=== PATIENT | female | born 1985 | race Caucasian/White ===

== ENCOUNTER 2016-11-15 01:18 | Inpatient (IN) | payer BC, OTHER ==
--- NOTE | 2016-11-15 01:25 | HP ---
COWS - Scale Resting Pulse: 0= [place] 80 or Below Sweatin=Flushed/Facial Moisture Restless Observation: 3= Extraneous Movement Pupil Size: 1= Pupils >than Normal Bone or Joint Aches: 2= Severe Diffuse Aches Runny Nose/ Eye Tearin= Runny Nose/Eyes GI Upset > 30mins: 1= Stomach Cramp Tremor Observation: 2= Slight Tremor Visible Yawning Observation: 1= 1-2x During Session Anxiety or Irritability: 1=Feels Anxious/Irritable Goose Flesh Skin: 0=Smooth Skin COWS Score: 15 Admission ROS S - HPI Chief Complaint: WITHDRAWAL SYMPTOMS Allergies/Adverse Reactions: Allergies Allergy/AdvReac Type Severity Reaction Status Date / Time No Known Allergies Allergy Verified 06/25/15 12:10 History of Present Illness: 31 Y.O. WOMAN WITH AN EXTENSIVE HISTORY OF DRUG DEPENDENCE IS SEEKING DETOX. SHE WAS PREVIOUSLY HERE IN 08/2014 BUT LEFT AMA. SHE REPORTS SHE DOES NOT HAVE A SIGNIFICANT PERIOD OF SOBRIETY. Exam Limitations: No Limitations - Ebola screening Have you traveled outside of the country in the last 21 days: No - Review of Systems Constitutional: Chills EENT: reports: Tearing Respiratory: reports: No Symptoms reported Cardiac: reports: No Symptoms Reported GI: reports: No Symptoms Reported : reports: Other (HESISTANCY) Musculoskeletal: reports: No Symptoms Reported Integumentary: reports: Sweating Endocrine: reports: No Symptoms Reported Hematology: reports: No Symptoms Reported Psychiatric: reports: Orientated x3, Anxious, Depressed Other Systems: Reviewed and Negative Patient History - Patient Medical History Hx Anemia: No Hx Asthma: No Hx Chronic Obstructive Pulmonary Disease (COPD): No Hx Cancer: No Hx Cardiac Disorders: No Hx Congestive Heart Failure: No Hx Hypertension: No Hx Hypercholesterolemia: No Hx Pacemaker: No HX Cerebrovascular Accident: No Hx Seizures: No Hx Dementia: No Hx Diabetes: No Hx Gastrointestinal Disorders: No Hx Liver Disease: No Hx Genitourinary Disorders: No Hx Sexually Transmitted Disorders: No Hx Renal Disease (ESRD): No Hx Thyroid Disease: No Hx Human Immunodeficiency Virus (HIV): No Hx Hepatitis C: No Hx Depression: Yes Hx Suicide Attempt: No Hx Bipolar Disorder: No Hx Schizophrenia: No - Patient Surgical History Past Surgical History: No Hx Neurologic Surgery: No Hx Cataract Extraction: No Hx Cardiac Surgery: No Hx Lung Surgery: No Hx Breast Surgery: No Hx Breast Biopsy: No Hx Abdominal Surgery: No Hx Appendectomy: No Hx Cholecystectomy: No Hx Genitourinary Surgery: No Hx Section: No Hx Orthopedic Surgery: No Anesthesia Reaction: No - PPD History Previous Implant?: Yes Documented Results: Negative w/proof Implanted On Prior [facility] Admission?: Yes Date: 06/27/15 PPD to be Administered?: Yes - Reproductive History Patient is a Female of Child Bearing Age (11 -55 yrs old): Yes Last Menstrual Period: 10/14/16 Patient : No - Smoking Cessation Smoking history: Current every day smoker Have you smoked in the past 12 months: Yes Aproximately how many cigarettes per day: 20 Hx Chewing Tobacco Use: No Initiated information on smoking cessation: Yes 'Breaking Loose' booklet given: 11/15/16 - Substance & Tx. History Hx Alcohol Use: No Hx Substance Use: Yes Substance Use Type: Heroin, Marijuana Hx Substance Use Treatment: Yes (DETOX AND REHAB ) - Substances Abused Heroin Route: Injection Frequency: Daily Amount used: 1 BUNDLE Age of first use: 26 Date of Last Use: 11/14/16 Marijuana/Hashish Route: Smoking Frequency: Daily Amount used: 1-2 BLUNTS Age of first use: 17 Date of Last Use: 11/14/16 Family Disease History - Family Disease History Family Disease History: Diabetes: Grandparent, Father (HEROIN DEPENDENCE ), Heart Disease: Grandparent, Other: Father Admission Physical Exam BHS - Vital Signs Vital Signs: Last Vital Signs Temp Pulse Resp BP Pulse Ox 97.0 F L 72 18 116/71 11/15/16 01:36 11/15/16 01:36 11/15/16 01:36 11/15/16 01:36 - Physical General Appearance: Yes: Disheveled, Tremorous, Sweating, Anxious HEENTM: Yes: Hearing grossly Normal, Normal ENT Inspection, Normocephalic, Normal Voice Respiratory: Yes: Chest Non-Tender, Lungs Clear, Normal Breath Sounds, No Respiratory Distress, No Accessory Muscle Use Neck: Yes: No masses,lesions,Nodules, Trachea in good position Breast: Yes: Breast Exam Deferred Cardiology: Yes: Regular Rhythm, Regular Rate, S1, S2 Abdominal: Yes: Normal Bowel Sounds, Non Tender, Flat, Soft Genitourinary: Yes: Hesitency Back: Yes: Normal Inspection Musculoskeletal: Yes: full range of Motion, Gait Steady Extremities: Yes: Normal Range of Motion, Non-Tender, Tremors Neurological: Yes: Fully Oriented, Alert, Motor Strength 5/5, Normal Mood/Affect , Normal Response Integumentary: Yes: Dry, Warm, Track Aranda Lymphatic: Yes: Within Normal Limits - Diagnostic (1) Opioid dependence with withdrawal Current Visit: Yes Status: Chronic (2) Cannabis dependence, uncomplicated Current Visit: Yes Status: Chronic (3) Nicotine dependence Current Visit: Yes Status: Chronic Cleared for Admission [facility] - Detox or Rehab [facility] Level of Care: Medically Managed Detox Regimen/Protocol: Methadone [facility] Breath Alcohol Content Breath Alcohol Content: 0 Vital Signs - Vital Signs Vital Signs Refused: No Temperature: 97.0 F Temperature Source: Oral Pulse Rate: 72 Respiratory Rate: 18 Blood Pressure: 116/71 BP Location: Left Arm Blood Pressure Position: Sitting - Height Height: 5 ft 5 in - Weight Weight: 160 lb Weight Measurement Method: Standing Scale Body Mass Index (BMI): 26.6 Urine Pregancy Test - Test Device Lot Number: [id number] Expiration Date: 05/29/18 - Control Horizontal Line in Upper Control Window?: Yes - Result Urine Test Results: Negative- NO Line Present Urine Drug Screen - Test Device Lot Number: [id number] Expiration Date: 06/30/18 - Control Is Test Valid: Yes - Results Drug Screen Negative: No Urine Drug Screen Results: THC-Marijuana, OPI-Opiates
[2016-11-15 01:36] VITALS: BMI 26.6
[2016-11-15] MEDS ORDERED: IBUPROFEN 400 MG TABLET (FP) PO PRN (01:43)
[2016-11-15] MEDS ORDERED: P-EPHED 60MG/TRIPROLIDI 2.5MG TABLET PO PRN (01:43)
[2016-11-15] MEDS ORDERED: hydrOXYzine PAMOATE 50 MG CAPSULE (FP) PO PRN (01:43)
[2016-11-15] MEDS ORDERED: METHADONE HCL 10 MG TABLET (FOR DETOX USE ONLY) PO ONE ×3 (01:43→23:00)
[2016-11-15] MEDS ORDERED: MAG HYDROX/AL HYDROX/SIMETH 30 ML UNIT-DOSE CUP PO PRN (01:43)
[2016-11-15] MEDS ORDERED: ACETAMINOPHEN 325 MG TABLET (FP) PO PRN (01:43)
[2016-11-15] MEDS ORDERED: guaiFENesin/D-METHORPHAN HB 10 ML UNIT-DOSE CUPS PO PRN (01:43)
[2016-11-15] MEDS ORDERED: MAGNESIUM CITRATE 300 ML BOTTLE PO PRN (01:43)
[2016-11-15] MEDS ORDERED: MAGNESIUM HYDROX 2400MG/30ML ORAL SUSPENSION 30 ML CUP PO PRN (01:43)
[2016-11-15] MEDS ORDERED: LOPERAMIDE HCL 2 MG CAPSULE PO PRN (01:43)
[2016-11-15] MEDS ORDERED: diphenhydrAMINE HCL 50 MG CAPSULE PO PRN (01:43)
[2016-11-15] MEDS ORDERED: MENTHOL/PHENOL 1 EACH UD MM PRN (01:43)
[2016-11-15] MEDS: diazePAM 5 MG TABLET PO PRN ×3 (03:05→22:09)
[2016-11-15] MEDS: NICOTINE POLACRILEX 2 MG GUM BUC PRN (03:55)
[2016-11-15] MEDS: PRENATAL VITAMINS W/ FOLIC ACID TABLET (FP) PO SCH (10:19)
--- NOTE | 2016-11-15 10:54 | PN ---
BHS Progress Note (SOAP) Subjective: ALERT,IRRITABLE,ANXIOUS,INTERRUPTED SLEEP,TREMOR,PAIN IN THE BODY AND BACK Objective: 11/15/16 10:52 Vital Signs Temperature 98.4 F 11/15/16 09:52 Pulse Rate 85 11/15/16 09:52 Respiratory Rate 16 11/15/16 09:52 Blood Pressure 116/51 11/15/16 09:52 O2 Sat by Pulse Oximetry (%) EKG NSR LABS PENDING Assessment: 11/15/16 10:53 WITHDRAWAL SYMPTOM Plan: CONTINUE DETOX
[2016-11-15 12:35] LABS: HIV 1 AGp24 NEGATIVE
[2016-11-15 12:36] LABS: HIV 1 & 2 AB NEGATIVE
[2016-11-15] MEDS: THIAMINE HCL 100 MG TABLET (FP) PO SCH (22:08)
[2016-11-16] MEDS: diazePAM 5 MG TABLET PO PRN ×3 (05:53→22:10)
--- NOTE | 2016-11-16 09:36 | CONSULT ---
[facility] Psychiatric Consult - Data Date of interview: 11/16/16 Admission source: [facility] Identifying data: This is 31 yeras old female with no psyvjiatric [id number] history intoxicated with Opioids, Cannabis and Nicotine Substance Abuse History: - Smoking Cessation. Smoking history: Current every day smoker. Have you smoked in the past 12 months: Yes. Aproximately how many cigarettes per day: 20. Hx Chewing Tobacco Use: No. Initiated information on smoking cessation: Yes. 'Breaking Loose' booklet given: 11/15/16. - Substance & Tx. History. Hx Alcohol Use: No. Hx Substance Use: Yes. Substance Use Type : Heroin, Marijuana. Hx Substance Use Treatment: Yes (DETOX AND REHAB ). - Substances Abused. Heroin. Route: Injection. Frequency: Daily. Amount used: 1 BUNDLE. Age of first use: 26. Date of Last Use: 11/14/16. Marijuana/Hashish. Route: Smoking. Frequency: Daily. Amount used: 1-2 BLUNTS. Age of first use: 17. Date of Last Use: 11/14/16 Medical History: Cellulitis history Psychiatric History: Patient reports history of anxiety, reports insomnia, reports tasking priorm to admission: Remeron 15mg po qhs Physical/Sexual Abuse/Trauma History: Denies Additional Comment: Remeron 15mg po qhs Mental Status Exam - Mental Status Exam Alert and Oriented to: Person Cognitive Function: Fair Patient Appearance: Unkempt Mood: Sad Affect: Mood Congruent Patient Behavior: Cooperative Speech Pattern: Appropriate Voice Loudness: Mildly Soft/Quiet Thought Process: Goal Oriented Thought Disorder: Being Controlled Hallucinations: Denies Suicidal Ideation: Denies Homicidal Ideation: Denies Insight/Judgement: Fair Sleep: Difficulty falling asleep Appetite: Fair Muscle strength/Tone: Normal Gait/Station: Shuffling Additional Comments: Remeron 15mg po qhs Psychiatric Findings - Problem List ([place] 1, 2,3) (1) Cannabis dependence, uncomplicated Current Visit: Yes Status: Chronic (2) Nicotine dependence Current Visit: Yes Status: Chronic (3) Opioid dependence with withdrawal Current Visit: Yes Status: Chronic (4) Drug-induced mood disorder Current Visit: No Status: Acute (5) Cannabis abuse, uncomplicated Current Visit: No Status: Chronic (6) Nicotine dependence, uncomplicated Current Visit: No Status: Chronic Qualifiers: Nicotine product type: cigarettes Qualified Code(s): F17.210 - Nicotine dependence, cigarettes, uncomplicated - Initial Treatment Plan Initial Treatment Plan: Remeron 15mg po qhs
--- NOTE | 2016-11-16 09:56 | PN ---
BHS COWS - Scale Resting Pulse: 0= [place] 80 or Below Sweatin= Chills/Flushing Restless Observation: 1= Difficult to Sit Still Pupil Size: 1= Pupils >than Normal Bone or Joint Aches: 0= None Runny Nose/ Eye Tearin= Nasal Congestion GI Upset > 30mins: 2= Nausea/Diarrhea Tremor Observation of Outstretched Hands: 1= Tremor [place], Not Seen Yawning Observation: 1= 1-2x During Session Anxiety or Irritability: 2=Irritable/Anxious Goose Flesh Skin: 0=Smooth Skin COWS Score: 10 BHS Progress Note (SOAP) Subjective: interrupted sleep, sweats, shakes , nausea Objective: 11/16/16 09:54 Vital Signs Temperature 98.6 F 11/16/16 06:00 Pulse Rate 79 11/16/16 06:00 Respiratory Rate 18 11/16/16 06:00 Blood Pressure 130/55 11/16/16 06:00 O2 Sat by Pulse Oximetry (%) Laboratory Tests 11/15/16 07:16 HIV 1&2 Antibody Screen Negative HIV P24 Antigen Negative Laboratory Tests 11/15/16 07:16 HIV 1&2 Antibody Screen Negative HIV P24 Antigen Negative pending labs pt aox 3 lying in bed Assessment: 11/16/16 09:55 withdrawal sx;s Plan: cont. detox increase fluids [place] prn
[2016-11-16] MEDS ORDERED: METHADONE HCL 10 MG TABLET (FOR DETOX USE ONLY) PO ONE (10:00)
[2016-11-16 10:02] LABS: MCH 27.9 pg (25.7-33.7); MCHC 33.4 g/dl (32.0-36.0); MEAN CELL VOLUME 83.7 fl (80-96); MEAN PLT VOLUME 9.7 fl (7.5-11.1); PLATELET COUNT 246 K/MM3 (134-434); RDW 14.8 % (11.6-15.6); WHITE BLOOD COUNT 9.3 K/mm3 (4.0-10.0)
[2016-11-16 10:06] LABS: URINE APPEARANCE CLEAR; URINE BILIRUBIN NEGATIVE (NEGATIVE); URINE BLOOD NEGATIVE (NEGATIVE); URINE COLOR LTYELLOW; URINE GLUCOSE (UA) NEGATIVE (NEGATIVE); URINE KETONE NEGATIVE (NEGATIVE); URINE LEUK ESTERASE NEGATIVE (NEGATIVE); URINE NITRITE NEGATIVE (NEGATIVE); URINE PROTEIN NEGATIVE (NEGATIVE); URINE UROBILINOGEN NEGATIVE E.U./dl (0.2-1.0)
[2016-11-16] MEDS: PRENATAL VITAMINS W/ FOLIC ACID TABLET (FP) PO SCH (10:16)
[2016-11-16] MEDS: MIRTAZAPINE 15 MG TABLET (FP) PO SCH (10:16)
[2016-11-16 10:44] LABS: ALBUMIN 3.7 g/dl (3.4-5.0); ALK PHOS 61 U/L (45-117); ANION GAP 10 (8-16); BILIRUBIN,TOTAL 0.4 mg/dL (0.2-1.0); CALCIUM 8.7 mg/dL (8.5-10.1); CO2 27 mmol/L (21-32); CREATININE 0.6 mg/dL (0.55-1.02); GLUCOSE,RANDOM 85 mg/dL (74-106); SGOT/AST 16 U/L (15-37); SGPT/ALT 17 U/L (12-78); TOT PROT 6.5 g/dl (6.4-8.2)
[2016-11-16] MEDS: THIAMINE HCL 100 MG TABLET (FP) PO SCH (22:10)
[2016-11-17 09:46] VITALS: BP 123/67; PULSE 77; TEMP 98.8
[2016-11-17] MEDS ORDERED: METHADONE HCL 5 MG TABLET (FOR DETOX USE ONLY) PO ONE (10:00)
[2016-11-17] MEDS: PRENATAL VITAMINS W/ FOLIC ACID TABLET (FP) PO SCH (10:15)
[2016-11-17] MEDS: MIRTAZAPINE 15 MG TABLET (FP) PO SCH (10:16)
[2016-11-17] MEDS: diazePAM 5 MG TABLET PO PRN (10:18)
[2016-11-17] MEDS: NICOTINE POLACRILEX 2 MG GUM BUC PRN (10:18)
--- NOTE | 2016-11-17 10:32 | PN ---
BHS Progress Note (SOAP) Subjective: teary eyes sweats body aches agitation anxiety chills Objective: 11/17/16 10:31 Vital Signs Temperature 98.8 F 11/17/16 09:46 Pulse Rate 77 11/17/16 09:46 Respiratory Rate 18 11/17/16 09:46 Blood Pressure 123/67 11/17/16 09:46 O2 Sat by Pulse Oximetry (%) Laboratory Tests 11/15/16 11/15/16 11/16/16 07:16 07:16 06:00 WBC 9.3 RBC 4.49 Hgb 12.6 Hct 37.6 MCV 83.7 MCHC 33.4 RDW 14.8 Plt Count 246 MPV 9.7 Sodium Potassium Chloride Carbon Dioxide Anion Gap BUN Creatinine Creat Clearance w eGFR Random Glucose Calcium Total Bilirubin AST ALT Alkaline Phosphatase Total Protein Albumin Urine Color Urine Appearance Urine pH Ur Specific Fabius Urine Protein Urine Glucose (UA) Urine Ketones Urine Blood Urine Nitrite Urine Bilirubin Urine Urobilinogen Ur Leukocyte Esterase RPR Titer Hepatitis C Antibody 0.1 HIV 1&2 Antibody Screen Negative HIV P24 Antigen Negative 11/16/16 11/16/16 11/16/16 06:00 06:00 07:00 WBC RBC Hgb Hct MCV MCHC RDW Plt Count MPV Sodium 139 Potassium 4.3 Chloride 102 Carbon Dioxide 27 Anion Gap 10 BUN 16 D Creatinine 0.6 D Creat Clearance w eGFR > 60 Random Glucose 85 Calcium 8.7 Total Bilirubin 0.4 D AST 16 ALT 17 D Alkaline Phosphatase 61 D Total Protein 6.5 Albumin 3.7 Urine Color Ltyellow Urine Appearance Clear Urine pH 8.0 Ur Specific Fabius 1.016 Urine Protein Negative Urine Glucose (UA) Negative Urine Ketones Negative Urine Blood Negative Urine Nitrite Negative Urine Bilirubin Negative Urine Urobilinogen Negative Ur Leukocyte Esterase Negative RPR Titer Nonreactive Hepatitis C Antibody HIV 1&2 Antibody Screen HIV P24 Antigen awake/alert ambulating no acute distress Assessment: 11/17/16 10:31 withdrawal sx Plan: continue detox increase fluids acitifed prn
--- NOTE | 2016-11-17 12:44 | DS ---
[facility] Detox Discharge Summary Admission Date: 11/15/16 - History Present History: Cannabis Dependence, Opioid Dependence - Physical Exam Results Vital Signs: Vital Signs Temperature 98.8 F 11/17/16 09:46 Pulse Rate 77 11/17/16 09:46 Respiratory Rate 18 11/17/16 09:46 Blood Pressure 123/67 11/17/16 09:46 O2 Sat by Pulse Oximetry (%) - Treatment Hospital Course: Detox Protocol Followed - Medication Discharge Medications: Ambulatory Orders Mirtazapine [Remeron -] 15 mg PO HS 06/25/15 Nabumetone [Relafen -] 500 mg PO BID 06/25/15 Mirtazapine [Remeron -] 15 mg PO HS #30 tablet 06/27/15 Cephalexin Monohydrate [Keflex -] 500 mg PO Q6HPO #20 capsule 06/28/15 Mirtazapine [Remeron -] 15 mg PO HS #30 tablet 11/16/16 - Diagnosis (1) Cannabis dependence, uncomplicated Current Visit: Yes Status: Chronic (2) Nicotine dependence Current Visit: Yes Status: Chronic Qualifiers: Nicotine product type: cigarettes Substance use status: uncomplicated Qualified Code(s): F17.210 - Nicotine dependence, cigarettes, uncomplicated (3) Opioid dependence with withdrawal Current Visit: Yes Status: Chronic (4) Anxiety disorder Current Visit: No Status: Acute (5) Cannabis abuse, uncomplicated Current Visit: Yes Status: Chronic - AMA Did Patient Leave Against Medical Advice: Yes (wants to leave detox. )
--- NOTE | 2016-11-17 16:58 | EKG ---
Test Reason : Blood Pressure : / mmHG Vent. Rate : 060 BPM Atrial Rate : 060 BPM P-R Int : 134 ms QRS Dur : 086 ms QT Int : 418 ms P-R-T Axes : 047 061 028 degrees QTc Int : 418 ms NORMAL SINUS RHYTHM NORMAL ECG NO PREVIOUS ECGS AVAILABLE Confirmed by CHAPO PEREZ MD ([id number]) on 11/17/2016 4:57:55 PM Referred By: Confirmed By:CHAPO PEREZ MD
[2016-11-18] MEDS ORDERED: METHADONE HCL 5 MG TABLET (FOR DETOX USE ONLY) PO ONE (10:00)
[2016-11-19] MEDS ORDERED: METHADONE HCL 10 MG TABLET (FOR DETOX USE ONLY) PO ONE (10:00)
[2016-11-20] MEDS ORDERED: METHADONE HCL 5 MG TABLET (FOR DETOX USE ONLY) PO ONE (06:00)
== END 2016-11-17 13:00 | disposition left against medical advice (07) | DRG 770 ==
LOC: YASAS 01:18 → Y6N 01:21
PROVIDERS: ADMIT Internal Medicine Addiction Medicine; ATTEND Internal Medicine
PROC: HZ2ZZZZ Detoxification Services for Substance Abuse Treatment (ICD-10-PCS; principal; 2016-11-17)
DX: F11.23 Opioid dependence with withdrawal (principal); F12.20 Cannabis dependence, uncomplicated; F17.210 Nicotine dependence, cigarettes, uncomplicated; F41.9 Anxiety disorder, unspecified; F19.24 Other psychoactive substance dependence with psychoactive substance-induced mood disorder
CPT/HCPCS: 36415; 80053; 81003; 85027; 86593; 87389; 93005; 93010

== ENCOUNTER 2017-02-21 18:49 | Inpatient (IN) | payer BC ==
--- NOTE | 2017-02-21 21:01 | PDOC ---
History of Present Illness - General Chief Complaint: Redness To Affected Area Stated Complaint: INFECTION Time Seen by Provider: 02/21/17 19:26 History Source: Patient Exam Limitations: No Limitations - History of Present Illness Initial Comments: 02/21/17 20:56 Patient is a 31-year-old female IVDA heroine and cocaine, chronic back pain on pain management here with complaints of bilateral hands and feet swelling which started this morning. Patient states that on February 13 she was admitted to the hospital for IV antibiotics for infection to the hands was discharged on February 17. States that when she got home she started shooting up again in the hand and is here for bilateral hand swelling and pain. She was discharged with Bactrim, but did not take the meds immediately seem to have missed a few day, however after taking 1 day of Bactrim, the next day started to have swelling, burning to the hand and feet with blister to the planter aspect of feet and in the oral mucoa. States she thinks she is allergic because she got similar swelling to her extremities with amoxicillin. States today went on a binge and shot up heroine and cocaine. 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 PMD:none PMHX: as above ALL: amoxicillin GENERAL/CONSTITUTIONAL: [No fever or chills. No weakness. No weight change.] HEAD, EYES, EARS, NOSE AND THROAT: [No change in vision. No ear pain or discharge. No sore throat.] CARDIOVASCULAR: [No chest pain or shortness of breath.] RESPIRATORY: [No cough, wheezing, or hemoptysis.] GASTROINTESTINAL: [No nausea, vomiting, diarrhea or constipation. No rectal bleeding.] GENITOURINARY: [No dysuria, frequency, or change in urination.] MUSCULOSKELETAL: [No joint or muscle swelling or pain. No neck or back pain.] SKIN AND BREASTS: [No rash or easy bruising.] NEUROLOGIC: [No headache, vertigo, loss of consciousness, or loss of sensation.] PSYCHIATRIC: [No depression or anxiety.] ENDOCRINE: [No increased thirst. No abnormal weight change.] HEMATOLOGIC/LYMPHATIC: [No anemia, easy bleeding, or history of blood clots.] ALLERGIC/IMMUNOLOGIC: [No hives or skin allergy. No latex allergy.] GENERAL: [The patient is awake, alert, and fully oriented, in no acute distress. ] HEAD: [Normal with no signs of trauma.] EYES: [Pupils equal, round and reactive to light, extraocular movements intact, sclera anicteric, conjunctiva clear.] ENT: [Ears normal, nares patent, oropharynx clear without exudates. Moist mucous membranes.] NECK: [Normal range of motion, supple without lymphadenopathy, JVD, or masses.] LUNGS: [Breath sounds equal, clear to auscultation bilaterally. No wheezes, and no crackles.] HEART: [Regular rate and rhythm, normal S1 and S2 without murmur, rub.] ABDOMEN: [Soft, nontender, normoactive bowel sounds. No guarding, no rebound. No masses.] EXTREMITIES: Limited range of motion bilateral hands especially right, moderate amount of swelling hands right greater than left, tenderness to palpation, erythema, No clubbing or cyanosis. No cords] NEUROLOGICAL: [Cranial nerves II through XII grossly intact. Normal speech, normal gait.] PSYCH: [Normal mood, normal affect.] SKIN: (+) blisters to the planter aspect feet, (+) moderate swelling to b/l hands R>L. 1 blister in the right lower lip Past History - Past Medical History Allergies/Adverse Reactions: Allergies Allergy/AdvReac Type Severity Reaction Status Date / Time amoxicillin Allergy Verified 02/21/17 19:32 sulfamethoxazole Allergy Verified 02/21/17 19:32 [From Bactrim] trimethoprim [From Bactrim] Allergy Verified 02/21/17 19:32 Home Medications: Ambulatory Orders Gabapentin [Gralise] 1 tab PO DAILY 02/21/17 Oxycodone HCl/Acetaminophen [Xartemis Xr 7.5-325 mg Tablet] 1 each PO DAILY Sulfamethoxazole/Trimethoprim [Bactrim Ds -] 1 tab PO DAILY 02/21/17 Anemia: No Asthma: No Cancer: No Cardiac Disorders: No CVA: No COPD: No CHF: No Dementia: No Diabetes: No GI Disorders: No Disorders: No HTN: No Hypercholesterolemia: No Kidney Stones: No Liver Disease: No Suicide Attempt (Hx): No Seizures: No Thyroid Disease: No Other medical history: iv drug abuse - Surgical History Abdominal Surgery: No Appendectomy: No Cardiac Surgery: No Cholecystectomy: No Lung Surgery: No Neurologic Surgery: No Orthopedic Surgery: No - Reproductive History PID: No - Psycho/Social/Smoking Cessation Hx Anxiety: Yes Suicidal Ideation: No Smoking History: Current some day smoker Have you smoked in the past 12 months: Yes Number of Cigarettes Smoked Daily: 20 Information on smoking cessation initiated: Yes 'Breaking Loose' booklet given: 02/21/17 Hx Alcohol Use: No Drug/Substance Use Hx: Yes (herion and coccaine) Substance Use Type: Cocaine, Heroin, Marijuana Hx Substance Use Treatment: Yes (DETOX AND REHAB ) *Physical Exam - Vital Signs Last Vital Signs Temp Pulse Resp BP Pulse Ox 98.3 F 103 H 20 134/97 97 02/21/17 18:51 02/21/17 18:51 02/21/17 18:51 02/21/17 18:51 02/21/17 19:20 ED Treatment Course - LABORATORY CBC & Chemistry Diagram: 02/21/17 22:27 02/21/17 22:00 Medical Decision Making - Medical Decision Making 02/21/17 21:01 Patient is a 31-year-old female with history of IVDA here with bilateral hand swelling after shooting up consistent. Hand cellulitis rule out abscess xray hand labs, Clindamycin 900mg IV B/L hand and feet burning with blisters r/o allergic reaction/rod dharmesh benadryl, pepcid, solumedrol. xray no FB, (+) soft tissue swelling d/w Dr. Cunningham will admit *DC/Admit/Observation/Transfer Diagnosis at time of Disposition: Cellulitis of hand, Rod-Dharmesh syndrome, Drug abuse and dependence Allergic reaction Qualifiers: Encounter type: initial encounter Qualified Code(s): T78.40XA - Allergy, unspecified, initial encounter - Discharge Dispostion Admit: Yes
[2017-02-21] MEDS ORDERED: CLINDAMYCIN 900 MG PREMIX IVPB 50 ML IVPB ONE ×2 (21:04→23:13)
[2017-02-21] MEDS ORDERED: KETOROLAC TROMETHAMINE 30 MG/1 ML VIAL IVPUSH ONE (21:13)
[2017-02-21] MEDS ORDERED: FAMOTIDINE 20 MG/50 ML IVPB 50 ML IVPB ONE ×2 (22:27→23:14)
[2017-02-21] MEDS ORDERED: methylPREDNISolone NA SUCC 125 MG/2 ML VIAL IVPB ONE (22:28)
[2017-02-21 22:42] LABS: BASOPHIL 0.9 % (0-2.0); EOSINOPHIL 1.3 % (0-4.5); MCH 26.8 pg (25.7-33.7); MCHC 32.3 g/dl (32.0-36.0); MEAN PLT VOLUME 9.3 fl (7.5-11.1); NEUTROPHILS 72.4 % (42.8-82.8); PLATELET COUNT 259 K/MM3 (134-434); RDW 14.5 % (11.6-15.6); WHITE BLOOD COUNT 14.3 K/mm3 (4.0-10.0)
[2017-02-21 23:12] LABS: ALBUMIN 4.4 g/dl (3.4-5.0); ANION GAP 10 (8-16); BILIRUBIN,TOTAL 0.9 mg/dL (0.2-1.0); CALCIUM 8.7 mg/dL (8.5-10.1); CO2 22 mmol/L (21-32); GLUCOSE,RANDOM 88 mg/dL (74-106); SGOT/AST 53 U/L (15-37); SGPT/ALT 44 U/L (12-78); TOT PROT 7.8 g/dl (6.4-8.2)
[2017-02-21 23:14] LABS: ALK PHOS 84 U/L (45-117)
[2017-02-21] MEDS ORDERED: KETOROLAC TROMETHAMINE 30 MG/1 ML VIAL ONE ×2 (23:14→23:17)
[2017-02-21] MEDS ORDERED: methylPREDNISolone NA SUCC 125 MG/2 ML VIAL ONE (23:14)
--- NOTE | 2017-02-22 00:38 | PN ---
<Haja Cunningham - Last Filed: 02/22/17 00:38> Teaching Attending Note Name of Resident: Valentin Norton ATTENDING PHYSICIAN STATEMENT I saw and evaluated the patient. I reviewed the resident's note and discussed the case with the resident. I agree with the resident's findings and plan as documented. SUBJECTIVE: OBJECTIVE: ASSESSMENT AND PLAN: <FengTeddy - Last Filed: 02/22/17 03:21> Teaching Attending Note ATTENDING PHYSICIAN STATEMENT I saw and evaluated the patient. I reviewed the resident's note and discussed the case with the resident. I agree with the resident's findings and plan as documented. SUBJECTIVE: Patient is a 31-year-old female IVDA heroine and cocaine, chronic back pain on pain management here with complaints of bilateral hands and feet swelling which started this morning. Patient states that on February 13 she was admitted to the hospital for IV antibiotics for infection to the hands was discharged on February 17. States that when she got home she started shooting up again in the hand and is here for bilateral hand swelling and pain. She was discharged with Bactrim, but did not take the meds immediately seem to have missed a few day, however after taking 1 day of Bactrim, the next day started to have swelling, burning to the hand and feet with blister to the plantar aspect of feet and in the oral mucosa. States today shot up heroin and cocaine. OBJECTIVE: Last Vital Signs 3 Temp Pulse Resp BP Pulse Ox 98.3 F 103 H 20 134/97 97 02/21/17 18:51 02/21/17 18:51 02/21/17 18:51 02/21/17 18:51 02/21/17 19:20 Physical Exam: Patient refused physical exam. Labs: CBCD 3 WBC 14.3 K/mm3 (4.0-10.0) H D 02/21/17 22:27 RBC 4.49 M/mm3 (3.60-5.2) 02/21/17 22:27 Hgb 12.0 GM/dL (10.7-15.3) 02/21/17 22:27 Hct 37.3 % (32.4-45.2) 02/21/17 22:27 MCV 83.0 fl (80-96) 02/21/17 22:27 MCHC 32.3 g/dl (32.0-36.0) 02/21/17 22:27 RDW 14.5 % (11.6-15.6) 02/21/17 22:27 Plt Count 259 K/MM3 (134-434) 02/21/17 22:27 MPV 9.3 fl (7.5-11.1) 02/21/17 22:27 CMP 3 Sodium 139 mmol/L (136-145) 02/21/17 22:00 Potassium 4.0 mmol/L (3.5-5.1) 02/21/17 22:00 Chloride 107 mmol/L (98-107) 02/21/17 22:00 Carbon Dioxide 22 mmol/L (21-32) 02/21/17 22:00 Anion Gap 10 (8-16) 02/21/17 22:00 BUN 11 mg/dL (7-18) D 02/21/17 22:00 Creatinine 1.0 mg/dL (0.55-1.02) D 02/21/17 22:00 Creat Clearance w eGFR > 60 (>60) 02/21/17 22:00 Calcium 8.7 mg/dL (8.5-10.1) 02/21/17 22:00 Total Bilirubin 0.9 mg/dL (0.2-1.0) D 02/21/17 22:00 AST 53 U/L (15-37) H D 02/21/17 22:00 ALT 44 U/L (12-78) D 02/21/17 22:00 Alkaline Phosphatase 84 U/L (45-117) D 02/21/17 22:00 Total Protein 7.8 g/dl (6.4-8.2) 02/21/17 22:00 Albumin 4.4 g/dl (3.4-5.0) 02/21/17 22:00 ASSESSMENT AND PLAN: Patient is a 31-year-old female heroine and cocaine abuse, chronic back pain who presents with bilateral hand and foot edema, found to have cellulitis. 1. Cellulitis of bilateral hands - CT bilateral hands to r/o air - Vancomycin - Aztreonam - ID consult - ? Abcess 2. History of heroin and cocaine abuse. - Detox consult DVT PPX - low risk - SCDs Place in med surg. Documentation prepared by Teddy Toney, acting as biomedical technician for Dr. Haja Cunningham MD.
--- NOTE | 2017-02-22 02:25 | HP ---
CHIEF COMPLAINT: PCP: No pcp HISTORY OF PRESENT ILLNESS: 31 y/o F w/hx of IVDA of heroine and cocaine, chronic back pain presents to ER w /B/L hand and feet swelling that began this AM. Pt was recently on IV abx and discharged February 17 with bactrim. Pt only began taking bactrim yesterday and after taking 1 dose the following day began having b/l hand and feet swelling. Pt states she also has recently used heroine and cocaine via IV and only uses her hands as sites for IVDU. She c/o b/l feet pain and cramping in her abdomen as she is currently menstruating. She denies fevers, chills. Further history was difficult to obtain as pt is currently altered due to drug use. Pt continues to fall asleep during questioning. According to ER notes pt sells her prescribed pain meds. ER course was notable for: (1) benadryl IV, solu-medrol, pepcid, toradol, clindamycin, BCx (2) (3) PAST MEDICAL HISTORY: IVDA of heroine and cocaine, chronic back pain PAST SURGICAL HISTORY: unable to obtain Social History: Smoking: pt did not answer Alcohol: pt did not answer Drugs: heroine and cocaine (IV) Family History: Allergies amoxicillin Allergy (Verified 02/21/17 19:32) sulfamethoxazole [From Bactrim] Allergy (Verified 02/21/17 19:32) New allergic reaction to prescribed Abx trimethoprim [From Bactrim] Allergy (Verified 02/21/17 19:32) New allergic reaction to prescribed Abx HOME MEDICATIONS: Home Medications Medication Instructions Recorded Gabapentin [Gralise] 1 tab PO DAILY 02/21/17 Oxycodone HCl/Acetaminophen 1 each PO DAILY 02/21/17 [Xartemis Xr 7.5-325 mg Tablet] Sulfamethoxazole/Trimethoprim 1 tab PO DAILY 02/21/17 [Bactrim Ds -] REVIEW OF SYSTEMS Could not obtain as pt is currently altered due to drug use. Vital Signs Temperature 98.3 F 02/21/17 18:51 Pulse Rate 103 H 02/21/17 18:51 Respiratory Rate 20 02/21/17 18:51 Blood Pressure 134/97 02/21/17 18:51 O2 Sat by Pulse Oximetry (%) 97 02/21/17 19:20 PHYSICAL EXAMINATION GENERAL: Lethargic, altered due to drug use. HEAD: Normal with no signs of trauma. LUNGS: Pt not following commands to take deep breaths. HEART: Regular rate and rhythm, normal S1 and S2 without murmur ABDOMEN: Pt did not allow me to examine. UPPER EXTREMITIES: multiple track dias on both hands. R hand with a yellow abscess approximately 0.5 cm in diameter. B/l Hand swelling. LOWER EXTREMITIES: b/l feet swelling with redness on plantar aspect of feet. warm NEUROLOGICAL: Delayed speech, not answering questions at this time completely.. PSYCHIATRIC: Non completely cooperative at this time SKIN: Lesions as noted in extremities above. CBCD WBC 14.3 K/mm3 (4.0-10.0) H D 02/21/17 22: RBC 4.49 M/mm3 (3.60-5.2) 02/21/17 22:27 Hgb 12.0 GM/dL (10.7-15.3) 02/21/17 22: Hct 37.3 % (32.4-45.2) 02/21/17 22: MCV 83.0 fl (80-96) 02/21/17 22:27 MCHC 32.3 g/dl (32.0-36.0) 02/21/17 22: RDW 14.5 % (11.6-15.6) 02/21/17 22:27 Plt Count 259 K/MM3 (134-434) 02/21/17 22:27 MPV 9.3 fl (7.5-11.1) 02/21/17 22:27 CMP Sodium 139 mmol/L (136-145) 02/21/17 22:00 Potassium 4.0 mmol/L (3.5-5.1) 02/21/17 22:00 Chloride 107 mmol/L (98-107) 02/21/17 22:00 Carbon Dioxide 22 mmol/L (21-32) 02/21/17 22:00 Anion Gap 10 (8-16) 02/21/17 22:00 BUN 11 mg/dL (7-18) D 02/21/17 22:00 Creatinine 1.0 mg/dL (0.55-1.02) D 02/21/17 22:00 Creat Clearance w eGFR > 60 (>60) 02/21/17 22:00 Random Glucose 88 mg/dL (74-106) 02/21/17 22:00 Calcium 8.7 mg/dL (8.5-10.1) 02/21/17 22:00 Total Bilirubin 0.9 mg/dL (0.2-1.0) D 02/21/17 22:00 AST 53 U/L (15-37) H D 02/21/17 22:00 ALT 44 U/L (12-78) D 02/21/17 22:00 Alkaline Phosphatase 84 U/L (45-117) D 02/21/17 22:00 Total Protein 7.8 g/dl (6.4-8.2) 02/21/17 22:00 Albumin 4.4 g/dl (3.4-5.0) 02/21/17 22:00 ASSESSMENT/PLAN: 31 y/o F w/hx of IVDA of heroine and cocaine, chronic back pain presents to ER w /B/L hand and feet swelling that began this AM. -Cellulitis of b/l hands -Will need CT of hands to r/o abscess or air -CT w/ contrast attempted but tech states contrast will not reach -Vanco 1.25 g (weight based) once stat ordered -Aztreonam 1 g once stat ordered (pt with amox allergy, given in place of zosyn) -ID consulted -Suspicion for SJS is low at this time -Leukocytosis -likely secondary to cellulitis -f/u BCx -monitor -Hx of heroin and cocaine abuse -Dr. Samuel Hicks consulted -f/u Utox -DVT ppx -SCDs -FEN -NS @ 75 ml/hr -Electrolytes wnl -NPO as pt is currently altered, can change once mental status improves -Dispo -Admit to m/s 2. History of heroin and cocaine abuse. - Detox consult DVT PPX - low risk - SCDs Visit type - Emergency Visit Emergency Visit: Yes ED Registration Date: 02/22/17 Care time: The patient presented to the Emergency Department on the above date and was hospitalized for further evaluation of their emergent condition. - New Patient This patient is new to me today: Yes Date on this admission: 02/22/17 - Critical Care Critical Care patient: No
[2017-02-22] MEDS ORDERED: VANCOMYCIN 1,250 MG in DEXTROSE 5%-WATER - 250 ML IVPB ONE (03:00)
[2017-02-22] MEDS ORDERED: AZTREONAM 1 GM in DEXTROSE 5%-WATER - 50 ML IVPB ONE (03:22)
[2017-02-22] MEDS ORDERED: SODIUM CHLORIDE 1,000 ML IV SCH (03:30)
[2017-02-22 05:18] VITALS: BMI 24.7
--- NOTE | 2017-02-22 09:47 | CONSULT ---
Consult Detox [facility] Reason for Current Admission/Consult: Heroin withdrawal sx. Referred by:: Valentin Norton Res - History History of Present Illness: 31 y/o woman who was here in october 2016 for detox,but did not complete detox. In october she reported using Heroin 10 bags daily.She presents to ED because of swelling & tenderness of both hands.She was hospitalized from February 13 to for IV antibiotics for cellulitis. Urine drug screen is pending. - History Source History Provided By: Patient, Medical Record - Alcohol/Substance Use Hx Alcohol Use: No Hx Substance Use: Yes Hx Substance Use Treatment: Yes (Detox in October at [facility]) - Current Drug/Alcohol Use Heroin Route: Injection Frequency: Daily Amount used: 10-20 bags Age of first use: 25 Date of Last Use: 02/21/17 Cocaine Route: Injection Frequency: Daily Date of Last Use: 02/21/17 Alprazolam (Xanax) Route: Oral Frequency: Daily Amount used: 4-6mg Age of first use: 20 Date of Last Use: 02/21/17 - Past Medical History ...LMP: 02/22/17 ...: No - Significant Medical Findings: Laboratory Tests 02/21/17 02/21/17 02/21/17 22:00 22:27 22:27 WBC 14.3 H D RBC 4.49 Hgb 12.0 Hct 37.3 MCV 83.0 MCHC 32.3 RDW 14.5 Plt Count 259 MPV 9.3 Neutrophils % 72.4 Lymphocytes % 19.5 Monocytes % 5.9 Eosinophils % 1.3 Basophils % 0.9 Sodium 139 Potassium 4.0 Chloride 107 Carbon Dioxide 22 Anion Gap 10 BUN 11 D Creatinine 1.0 D Creat Clearance w eGFR > 60 Random Glucose 88 Lactic Acid 0.7 Calcium 8.7 Total Bilirubin 0.9 D AST 53 H D ALT 44 D Alkaline Phosphatase 84 D Total Protein 7.8 Albumin 4.4 Urine HCG, Qual Opiates Screen Methadone Screen Barbiturate Screen Phencyclidine Screen Ur Amphetamines Screen MDMA (Ecstasy) Screen Benzodiazepines Screen Cocaine Screen U Marijuana (THC) Screen 02/22/17 02/22/17 10:50 10:50 WBC RBC Hgb Hct MCV MCHC RDW Plt Count MPV Neutrophils % Lymphocytes % Monocytes % Eosinophils % Basophils % Sodium Potassium Chloride Carbon Dioxide Anion Gap BUN Creatinine Creat Clearance w eGFR Random Glucose Lactic Acid Calcium Total Bilirubin AST ALT Alkaline Phosphatase Total Protein Albumin Urine HCG, Qual Negative Opiates Screen Positive Methadone Screen Positive Barbiturate Screen Negative Phencyclidine Screen Negative Ur Amphetamines Screen Negative MDMA (Ecstasy) Screen Negative Benzodiazepines Screen Positive Cocaine Screen Positive U Marijuana (THC) Screen Positive labs noted COWS - Scale Resting Pulse: 0= [place] 80 or Below Sweatin=Flushed/Facial Moisture Restless Observation: 3= Extraneous Movement Pupil Size: 2= Moderately Dilated Bone or Joint Aches: 2= Severe Diffuse Aches Runny Nose/ Eye Tearin= Runny Nose/Eyes GI Upset > 30mins: 2= Nausea/Diarrhea Tremor Observation: 2= Slight Tremor Visible Yawning Observation: 1= 1-2x During Session Anxiety or Irritability: 2=Irritable/Anxious Goose Flesh Skin: 0=Smooth Skin COWS Score: 18 CIWA Score - CIWA Score Nausea/Vomitin Muscle Tremors: 4-Moderate,w/Arms Extend Anxiety: 4-Mod. Anxious/Guarded Agitation: 4-Moderately Restless Paroxysmal Sweats: 3 Orientation: 0-Oriented Tacttile Disturbances: 0-None Auditory Disturbances: 0-None Visual Disturbances: 0-None Headache: 0-None Present CIWA-Ar Total Score: 17 Assessment Plan - Diagnosis (1) Opioid dependence with withdrawal Status: Acute (2) Sedative, hypnotic or anxiolytic dependence with withdrawal, uncomplicated Status: Acute - Medication Detox Regimen/Protocol: Methadone/Valium
[2017-02-22 12:16] LABS: URINE MARIJUANA THC POSITIVE ng/ml (CUTOFF=50)
--- NOTE | 2017-02-22 12:20 | CONSULT ---
Consult Consult Specialty:: infectious diseases Reason for Consultation:: iv drug abuse - History of Present Illness Chief Complaint: changes in the skin History of Present Illness: this young girl who uses both cocaine and heroine iv and she does multiple times patient mentions that she uses both drugs yesterday patient did it multiple times and she used the same needles also according to the patient she started noticing change of color of her hands which are showing black color and also she has some open wounds at the needle luzma she was in [facility] about one week back, and then she was discharged on bactrim--she developed reaction patient now comes to the hospital.patient mentions that she got scared of her color of her hands patients urine just came back and it shows multiple drugs in her urine she also mentioned she has burning - History Source History Provided By: Patient, Medical Record Limitations to Obtaining History: No Limitations - Past Medical History ...LMP: 02/22/17 ...: No - Alcohol/Substance Use Hx Alcohol Use: No - Smoking History Smoking history: Current some day smoker Have you smoked in the past 12 months: Yes Aproximately how many cigarettes per day: 20 Home Medications - Allergies Allergies/Adverse Reactions: Allergies Allergy/AdvReac Type Severity Reaction Status Date / Time amoxicillin Allergy Verified 02/21/17 19:32 sulfamethoxazole Allergy Verified 02/21/17 19:32 [From Bactrim] trimethoprim [From Bactrim] Allergy Verified 02/21/17 19:32 - Home Medications Home Medications: Ambulatory Orders Gabapentin [Gralise] 1 tab PO DAILY 02/21/17 Oxycodone HCl/Acetaminophen [Xartemis Xr 7.5-325 mg Tablet] 1 each PO DAILY Sulfamethoxazole/Trimethoprim [Bactrim Ds -] 1 tab PO DAILY 02/21/17 Family Disease History - Family Disease History Family Disease History: Diabetes: Grandparent, Father (HEROIN DEPENDENCE ), Heart Disease: Grandparent, Other: Father Review of Systems - Review of Systems Constitutional: reports: Other Eyes: reports: No Symptoms HENT: reports: No Symptoms Neck: reports: No Symptoms Cardiovascular: reports: No Symptoms Respiratory: reports: No Symptoms Gastrointestinal: reports: No Symptoms Genitourinary: reports: No Symptoms Integumentary: reports: Change in Color, Erythema, Wound (on hands from needle dias) Neurological: reports: No Symptoms Endocrine: reports: No Symptoms Hematology/Lymphatic: reports: No Symptoms Psychiatric: reports: No Symptoms Physical Exam Vital Signs: Vital Signs Temperature 98.1 F 02/22/17 08:47 Pulse Rate 72 02/22/17 08:47 Respiratory Rate 18 02/22/17 08:47 Blood Pressure 121/78 02/22/17 08:47 O2 Sat by Pulse Oximetry (%) 99 02/22/17 08:48 Constitutional: Yes: Well Nourished, Moderate Distress Eyes: Yes: Conjunctiva Clear HENT: Yes: Atraumatic, Normocephalic Neck: Yes: Supple, Trachea Midline Cardiovascular: Yes: Regular Rate and Rhythm, Gallop, Other Respiratory: Yes: Regular, CTA Bilaterally Gastrointestinal: Yes: Normal Bowel Sounds, Soft Musculoskeletal: Yes: Other Extremities: Yes: Other (iv dias on both hands with ulcers on the hand from needle dias tingling in the legs) Wound/Incision: Yes: Open to air, Other Neurological: Yes: Alert, Oriented Psychiatric: Yes: Alert, Oriented Imaging - Results X-ray: Report Reviewed, Image Reviewed Cat Scan: Report Reviewed, Image Reviewed Assessment/Plan -Cellulitis of b/l hands -Leukocytosis -Hx of heroin and cocaine abuse tingling of the hand after looking at the history and drug reactions and patients history i am going to order echo of the hand plan echo started patient on abx detox going to see the patient await for blood cx to be back
[2017-02-22] MEDS ORDERED: METHADONE HCL 10 MG TABLET PO ONE (12:58)
[2017-02-22] MEDS ORDERED: diazePAM 5 MG TABLET PO ONE (12:58)
[2017-02-22] MEDS: MEROPENEM 1 GM in DEXTROSE 5%-WATER - 100 ML IVPB SCH ×2 (13:42→18:14)
[2017-02-22] MEDS: IBUPROFEN 600 MG TABLET (FP) PO ONE ×2 (18:13→18:23)
[2017-02-22] MEDS ORDERED: IBUPROFEN 600 MG TABLET (FP) PO ONE (18:15)
[2017-02-22] MEDS: diazePAM 5 MG TABLET PO SCH ×2 (18:16→22:00)
[2017-02-22] MEDS: SODIUM CHLORIDE 1,000 ML IV SCH (18:26)
[2017-02-23] MEDS ORDERED: PT OWN MED DRAWER 7, Y5N ONE ×2 (02:37→05:51)
[2017-02-23] MEDS ORDERED: cloNIDine HCL 0.1 MG TABLET PO ONE (02:49)
[2017-02-23] MEDS: MEROPENEM 1 GM in DEXTROSE 5%-WATER - 100 ML IVPB SCH ×3 (02:59→19:47)
[2017-02-23] MEDS: SODIUM CHLORIDE 1,000 ML IV SCH (03:01)
[2017-02-23] MEDS: VANCOMYCIN 1,250 MG in DEXTROSE 5%-WATER - 250 ML IVPB SCH (06:03)
[2017-02-23] MEDS: diazePAM 5 MG TABLET PO SCH ×3 (06:03→22:02)
[2017-02-23] MEDS: diazePAM 5 MG TABLET PO PRN ×3 (08:36→17:30)
[2017-02-23] MEDS: METHADONE HCL 10 MG TABLET PO SCH ×2 (08:38→11:28)
[2017-02-23] MEDS: IBUPROFEN 600 MG TABLET (FP) PO PRN (13:59)
--- NOTE | 2017-02-23 14:42 | PN ---
Progress Note, Physician History of Present Illness: patient doing better cellulitits of both hands improving - Current Medication List Current Medications: Active Medications Diazepam (Valium -) 10 mg PO Q4H PRN PRN Reason: WITHDRAWAL(CONT SUBST) Stop: 02/25/17 12:58 Last Admin: 02/23/17 13:31 Dose: 10 mg Diazepam (Valium -) 5 mg PO TID [facility] Stop: 02/23/17 22:01 Last Admin: 02/23/17 13:32 Dose: Not Given Diazepam (Valium -) 5 mg PO BID [facility] Stop: 02/25/17 22:01 Diazepam (Valium -) 5 mg PO DAILY [facility] Stop: 02/26/17 10:01 Vancomycin HCl 1,250 mg/ (Dextrose) 250 mls @ 125 mls/hr IVPB DAILY@0600 [facility] PRN Reason: Protocol Last Admin: 02/23/17 06:03 Dose: 125 mls/hr Meropenem 1 gm/ Dextrose 100 mls @ 100 mls/hr IVPB Q8H-IV [facility] PRN Reason: Protocol Last Admin: 02/23/17 09:49 Dose: 100 mls/hr Sodium Chloride (Normal Saline -) 1,000 mls @ 100 mls/hr IV ASDIR [facility] Last Admin: 02/23/17 03:01 Dose: 100 mls/hr Ibuprofen (Motrin -) 600 mg PO Q8H PRN PRN Reason: PAIN Last Admin: 02/23/17 13:59 Dose: 600 mg Methadone HCl (Dolophine -) 10 mg PO DAILY [facility] Stop: 02/26/17 10:01 Methadone HCl (Dolophine -) 15 mg PO DAILY [facility] Stop: 02/25/17 10:01 Methadone HCl (Dolophine -) 5 mg PO DAILY@0600 [facility] Stop: 02/27/17 06:01 - Objective Vital Signs: Vital Signs Temperature 98.7 F 02/23/17 05:49 Pulse Rate 87 02/23/17 05:49 Respiratory Rate 18 02/23/17 05:49 Blood Pressure 116/63 02/23/17 05:49 O2 Sat by Pulse Oximetry (%) 98 02/22/17 21:00 Constitutional: Yes: No Distress, Calm Cardiovascular: Yes: Regular Rate and Rhythm Respiratory: Yes: Regular, CTA Bilaterally Gastrointestinal: Yes: Normal Bowel Sounds, Soft Musculoskeletal: Yes: Other Extremities: Yes: Other (hand improving celluitis patinet feeling better hand to follow up) Wound/Incision: Yes: Clean/Dry, Open to air Neurological: Yes: Alert, Oriented Psychiatric: Yes: Alert, Oriented Assessment/Plan -Cellulitis of b/l hands -Leukocytosis -Hx of heroin and cocaine abuse tingling of the hand plan continue abx elevation of hand hand surgeon to see identification of organism
--- NOTE | 2017-02-23 16:43 | PN ---
Physical Exam: SUBJECTIVE: Patient seen and examined. She reports feeling tired and weak. She was hearing a ringing overnight now no longer, at night she was sweaty and feeling cold; at night is when she usually withdraws OBJECTIVE: Vital Signs Period Temp Pulse Resp BP Sys/Rincon Pulse Ox Last 24 Hr 98.6 F-99.3 F 71-88 18-20 116-137/63-77 98-98 PE Neuro: alert, awake, cn 2-12intact HEENT: R EJ Pulm: CTAB CV: s1 s2 rrr no mrg Abd: s nt nd +bs Ext: b/l anterior hands: erythema, open wound now drying, purpura, swelling, tenderness MSK: RLE numbness Active Medications Generic Name Dose Route Start Last Admin Trade Name Freq PRN Reason Stop Dose Admin Diazepam 10 mg 02/22/17 12:58 02/23/17 13:31 Valium - PO 02/25/17 12:58 10 mg Q4H PRN Administration WITHDRAWAL(CONT SUBST) Diazepam 5 mg 02/22/17 14:00 02/23/17 13:32 Valium - PO 02/23/17 22:01 Not Given TID [facility]ANNAH Diazepam 5 mg 02/24/17 10:00 Valium - PO 02/25/17 22:01 BID [facility]AN[facility] Diazepam 5 mg 02/26/17 10:00 Valium - PO 02/26/17 10:01 DAILY [facility] Vancomycin HCl 1,250 mg/ 250 mls @ 125 mls/hr 02/23/17 06:00 02/23/17 06:03 Dextrose IVPB 125 mls/hr DAILY@0600 [facility] Administration Protocol Meropenem 1 gm/ Dextrose 100 mls @ 100 mls/hr 02/22/17 13:00 02/23/17 09:49 IVPB 100 mls/hr Q8H-IV [facility]AN[facility] Administration Protocol Sodium Chloride 1,000 mls @ 100 mls/hr 02/22/17 17:33 02/23/17 03:01 Normal Saline - IV 100 mls/hr ASDIR HANNAH Administration Ibuprofen 600 mg 02/23/17 13:44 02/23/17 13:59 Motrin - PO 600 mg Q8H PRN Administration PAIN Methadone HCl 10 mg 02/26/17 10:00 Dolophine - PO 02/26/17 10:01 DAILY [facility] Methadone HCl 15 mg 02/24/17 10:00 Dolophine - PO 02/25/17 10:01 DAILY [facility] Methadone HCl 5 mg 02/27/17 06:00 Dolophine - PO 02/27/17 06:01 DAILY@0600 [facility] Non-Formulary Medication 1 tab 02/23/17 16:45 Gabapentin [Gralise] PO DAILY [facility] Assessment: 31 year old substance abuser (heroine and cocain daily) admitted with bilateral hand cellulitis and withdrawal Plan: 1. B/l hand cellulitis - Continue vanco daily (day 2) - Continue meropenem (day 2) - Xray negative for gas - ECHO negative for vegetation - Continue IVF - Pt reports using own needles, at times she will use spit or reuse same needles , however does not share 2. Substance abuse - Methadone detox - Valium detox 3. RLE pain - Reports sciatic - Resume home gabapentin Visit type - Emergency Visit Emergency Visit: Yes ED Registration Date: 02/22/17 Care time: The patient presented to the Emergency Department on the above date and was hospitalized for further evaluation of their emergent condition. - New Patient This patient is new to me today: Yes Date on this admission: 02/23/17 - Critical Care Critical Care patient: No
[2017-02-23] MEDS ORDERED: GABAPENTIN PO SCH (16:45)
[2017-02-23] MEDS: GABAPENTIN 300 MG CAPSULE (FP) PO SCH (21:57)
[2017-02-24] MEDS ORDERED: PT OWN MED DRAWER 7, Y5N ONE ×3 (01:14→09:47)
[2017-02-24] MEDS: SODIUM CHLORIDE 1,000 ML IV SCH ×2 (01:16→17:50)
[2017-02-24] MEDS: MEROPENEM 1 GM in DEXTROSE 5%-WATER - 100 ML IVPB SCH ×3 (01:16→17:49)
[2017-02-24] MEDS: diazePAM 5 MG TABLET PO PRN ×2 (01:17→23:32)
[2017-02-24] MEDS: VANCOMYCIN 1,250 MG in DEXTROSE 5%-WATER - 250 ML IVPB SCH (06:23)
[2017-02-24] MEDS: IBUPROFEN 600 MG TABLET (FP) PO PRN (06:39)
[2017-02-24] MEDS: diazePAM 5 MG TABLET PO SCH ×3 (09:41→23:28)
[2017-02-24] MEDS: GABAPENTIN 300 MG CAPSULE (FP) PO SCH (09:41)
[2017-02-24] MEDS: METHADONE HCL 5 MG TABLET PO SCH (09:41)
--- NOTE | 2017-02-24 10:32 | PN ---
Physical Exam: SUBJECTIVE: Patient seen and examined. She had bilateral limb throbbing last night, improved with clonidine. Father at bedside, pt is telling father about her drug use. OBJECTIVE: Vital Signs Period Temp Pulse Resp BP Sys/Rincon Pulse Ox Last 24 Hr 97.9 F-99.2 F 61-79 18-18 107-124/50-74 97 PE Neuro: alert, awake, cn 2-12intact HEENT: R EJ Pulm: CTAB CV: s1 s2 rrr no mrg Abd: s nt nd +bs Ext: b/l anterior hands: R hand lesions drying, swelling R hand> L, purpura, unable to full close R fist, R thumb bleb Active Medications Generic Name Dose Route Start Last Admin Trade Name Freq PRN Reason Stop Dose Admin Diazepam 10 mg 02/22/17 12:58 02/24/17 01:17 Valium - PO 02/25/17 12:58 10 mg Q4H PRN Administration WITHDRAWAL(CONT SUBST) Diazepam 5 mg 02/24/17 10:00 02/24/17 09:41 Valium - PO 02/25/17 22:01 5 mg BID [facility]AN[facility] Administration Diazepam 5 mg 02/26/17 10:00 Valium - PO 02/26/17 10:01 DAILY [facility] Gabapentin 300 mg 02/23/17 20:45 02/24/17 09:41 Neurontin - PO 300 mg DAILY [facility] Administration Vancomycin HCl 1,250 mg/ 250 mls @ 125 mls/hr 02/23/17 06:00 02/24/17 06:23 Dextrose IVPB 125 mls/hr DAILY@0600 [facility] Administration Protocol Meropenem 1 gm/ Dextrose 100 mls @ 100 mls/hr 02/22/17 13:00 02/24/17 09:50 IVPB 100 mls/hr Q8H-IV [facility] Administration Protocol Sodium Chloride 1,000 mls @ 100 mls/hr 02/22/17 17:33 02/24/17 01:16 Normal Saline - IV 100 mls/hr ASDIR [facility]ANNA[facility] Administration Ibuprofen 600 mg 02/23/17 13:44 02/24/17 06:39 Motrin - PO 600 mg Q8H PRN Administration PAIN Methadone HCl 10 mg 02/26/17 10:00 Dolophine - PO 02/26/17 10:01 DAILY [facility] Methadone HCl 15 mg 02/24/17 10:00 02/24/17 09:41 Dolophine - PO 02/25/17 10:01 15 mg DAILY [facility] Administration Methadone HCl 5 mg 02/27/17 06:00 Dolophine - PO 02/27/17 06:01 DAILY@0600 [facility] Imaging: - Hand xray negative for gas - ECHO negative for vegetation Assessment: 31 year old substance abuser (heroine and cocain daily) admitted with bilateral hand cellulitis and withdrawal Plan: 1. B/l hand cellulitis - Continue vanco daily (day 3) - Continue meropenem (day 3) - Decrease fluids 2. Substance abuse - Given clonidine overnight for withdrawal symptoms - Methadone detox - Valium detox 3. RLE pain, hx of sciatic - Resume home gabapentin Visit type - Emergency Visit Emergency Visit: Yes ED Registration Date: 02/22/17 Care time: The patient presented to the Emergency Department on the above date and was hospitalized for further evaluation of their emergent condition. - New Patient This patient is new to me today: No - Critical Care Critical Care patient: No
[2017-02-24 12:43] LABS: BASOPHIL 0.9 % (0-2.0); EOSINOPHIL 1.7 % (0-4.5); MCH 27.6 pg (25.7-33.7); MCHC 33.3 g/dl (32.0-36.0); MEAN CELL VOLUME 82.9 fl (80-96); MEAN PLT VOLUME 9.6 fl (7.5-11.1); NEUTROPHILS 50.2 % (42.8-82.8); PLATELET COUNT 247 K/MM3 (134-434); RDW 14.7 % (11.6-15.6); WHITE BLOOD COUNT 7.2 K/mm3 (4.0-10.0)
--- NOTE | 2017-02-24 13:42 | PN ---
Progress Note, Physician History of Present Illness: patient doing better cellulitits of both hands improving tingling in he legs - Current Medication List Current Medications: Active Medications Diazepam (Valium -) 10 mg PO Q4H PRN PRN Reason: WITHDRAWAL(CONT SUBST) Stop: 02/25/17 12:58 Last Admin: 02/24/17 01:17 Dose: 10 mg Diazepam (Valium -) 5 mg PO BID [facility] Stop: 02/25/17 22:01 Last Admin: 02/24/17 09:41 Dose: 5 mg Diazepam (Valium -) 5 mg PO DAILY [facility] Stop: 02/26/17 10:01 Gabapentin (Neurontin -) 300 mg PO DAILY [facility] Last Admin: 02/24/17 09:41 Dose: 300 mg Vancomycin HCl 1,250 mg/ (Dextrose) 250 mls @ 125 mls/hr IVPB DAILY@0600 [facility] PRN Reason: Protocol Last Admin: 02/24/17 06:23 Dose: 125 mls/hr Meropenem 1 gm/ Dextrose 100 mls @ 100 mls/hr IVPB Q8H-IV [facility] PRN Reason: Protocol Last Admin: 02/24/17 09:50 Dose: 100 mls/hr Sodium Chloride (Normal Saline -) 1,000 mls @ 60 mls/hr IV ASDIR [facility] Ibuprofen (Motrin -) 600 mg PO Q8H PRN PRN Reason: PAIN Last Admin: 02/24/17 06:39 Dose: 600 mg Methadone HCl (Dolophine -) 10 mg PO DAILY [facility] Stop: 02/26/17 10:01 Methadone HCl (Dolophine -) 15 mg PO DAILY [facility] Stop: 02/25/17 10:01 Last Admin: 02/24/17 09:41 Dose: 15 mg Methadone HCl (Dolophine -) 5 mg PO DAILY@0600 [facility] Stop: 02/27/17 06:01 - Objective Vital Signs: Vital Signs Temperature 97.9 F 02/24/17 06:00 Pulse Rate 79 02/24/17 06:00 Respiratory Rate 18 02/24/17 06:00 Blood Pressure 124/61 02/24/17 06:00 O2 Sat by Pulse Oximetry (%) 97 02/23/17 21:00 Constitutional: Yes: Calm, Mild Distress Cardiovascular: Yes: Regular Rate and Rhythm Respiratory: Yes: Regular, CTA Bilaterally Gastrointestinal: Yes: Normal Bowel Sounds, Soft Musculoskeletal: Yes: Other Extremities: Yes: Other (wounds on hands have improved) Neurological: Yes: Alert, Oriented Psychiatric: Yes: Alert, Oriented Labs: CBC, BMP 02/24/17 12:20 Assessment/Plan -Cellulitis of b/l hands -Leukocytosis -Hx of heroin and cocaine abuse tingling of the hand all results noted plan echo started patient on abx detox going to see the patient continue abx await for wound cx to be back
[2017-02-25] MEDS: IBUPROFEN 600 MG TABLET (FP) PO PRN ×3 (01:37→20:09)
[2017-02-25] MEDS ORDERED: PT OWN MED DRAWER 7, Y5N ONE (02:37)
[2017-02-25] MEDS: MEROPENEM 1 GM in DEXTROSE 5%-WATER - 100 ML IVPB SCH ×3 (02:40→19:29)
[2017-02-25] MEDS: diazePAM 5 MG TABLET PO PRN (07:45)
[2017-02-25] MEDS: SODIUM CHLORIDE 1,000 ML IV SCH ×2 (07:46→12:00)
[2017-02-25 07:52] LABS: BASOPHIL 1.1 % (0-2.0); EOSINOPHIL 2.9 % (0-4.5); MCH 27.8 pg (25.7-33.7); MCHC 33.8 g/dl (32.0-36.0); MEAN CELL VOLUME 82.3 fl (80-96); MEAN PLT VOLUME 8.7 fl (7.5-11.1); NEUTROPHILS 40.7 % (42.8-82.8); PLATELET COUNT 236 K/MM3 (134-434); RDW 14.2 % (11.6-15.6); WHITE BLOOD COUNT 6.5 K/mm3 (4.0-10.0)
[2017-02-25 08:36] LABS: ALBUMIN 3.5 g/dl (3.4-5.0); ANION GAP 9 (8-16); BILIRUBIN,TOTAL 0.3 mg/dL (0.2-1.0); CO2 26 mmol/L (21-32); CREATININE 0.7 mg/dL (0.55-1.02); GLUCOSE,RANDOM 103 mg/dL (74-106); SGOT/AST 18 U/L (15-37); SGPT/ALT 26 U/L (12-78); TOT PROT 6.5 g/dl (6.4-8.2)
[2017-02-25 08:37] LABS: ALK PHOS 65 U/L (45-117)
--- NOTE | 2017-02-25 08:40 | PN ---
Progress Note (short form) - Note Progress Note: SUBJECTIVE: The patient was seen and examined at the bedside, she was sleeping, when she woke up from sleeping, she reports pain in b/l hands. Vanc trough low this AM, awaiting call back from ID for redosing. Current Medications Generic Name Dose Route Start Last Admin Trade Name Freq PRN Reason Stop Dose Admin Diazepam 10 mg 02/22/17 12:58 02/25/17 07:45 Valium - PO 02/25/17 12:58 10 mg Q4H PRN Administration WITHDRAWAL(CONT SUBST) Diazepam 5 mg 02/24/17 10:00 02/24/17 23:28 Valium - PO 02/25/17 22:01 Not Given BID HANNAH Diazepam 5 mg 02/26/17 10:00 Valium - PO 02/26/17 10:01 DAILY HANNAH Gabapentin 300 mg 02/23/17 20:45 02/24/17 09:41 Neurontin - PO 300 mg DAILY [facility] Administration Vancomycin HCl 1,250 mg/ 250 mls @ 125 mls/hr 02/23/17 06:00 02/24/17 06:23 Dextrose IVPB 125 mls/hr DAILY@0600 [facility]ANNA[facility] Administration Protocol Meropenem 1 gm/ Dextrose 100 mls @ 100 mls/hr 02/22/17 13:00 02/25/17 02:40 IVPB 100 mls/hr Q8H-IV HANNAH Administration Protocol Sodium Chloride 1,000 mls @ 60 mls/hr 02/24/17 10:34 02/25/17 07:46 Normal Saline - IV 60 mls/hr ASDIR HANNAH Administration Ibuprofen 600 mg 02/23/17 13:44 02/25/17 01:37 Motrin - PO 600 mg Q8H PRN Administration PAIN Methadone HCl 10 mg 02/26/17 10:00 Dolophine - PO 02/26/17 10:01 DAILY HANNAH Methadone HCl 15 mg 02/24/17 10:00 02/24/17 09:41 Dolophine - PO 02/25/17 10:01 15 mg DAILY [facility]ANNA[facility] Administration Methadone HCl 5 mg 02/27/17 06:00 Dolophine - PO 02/27/17 06:01 DAILY@0600 [facility]ANNA[facility] OBJECTIVE: Vital Signs Period Temp Pulse Resp BP Sys/Rincon Pulse Ox Last 24 Hr 98.3 F-99.1 F 68-92 18-20 106-136/60-87 97 Physical Exam: General: NAD, A&Ox3 Lungs: CTA bilaterally Heart: RRR, S1S2 Abd: Soft, non-tender, non-distended. Normoactive bowel sounds Ext: B/l dorsal hand with lesions. B/l hand swelling, R>L. Unable to make a fist with right hand. Cap refill <3sec. Neuro: CN 2-12 intact CBCD WBC 6.5 K/mm3 (4.0-10.0) 02/25/17 06:00 RBC 4.02 M/mm3 (3.60-5.2) 02/25/17 06:00 Hgb 11.2 GM/dL (10.7-15.3) 02/25/17 06:00 Hct 33.0 % (32.4-45.2) 02/25/17 06:00 MCV 82.3 fl (80-96) 02/25/17 06:00 MCHC 33.8 g/dl (32.0-36.0) 02/25/17 06:00 RDW 14.2 % (11.6-15.6) 02/25/17 06:00 Plt Count 236 K/MM3 (134-434) 02/25/17 06:00 MPV 8.7 fl (7.5-11.1) 02/25/17 06:00 CMP Sodium 141 mmol/L (136-145) 02/24/17 12:20 Potassium 3.7 mmol/L (3.5-5.1) 02/24/17 12:20 Chloride 106 mmol/L (98-107) 02/24/17 12:20 Carbon Dioxide 26 mmol/L (21-32) 02/24/17 12:20 Anion Gap 9 (8-16) 02/24/17 12:20 BUN 9 mg/dL (7-18) 02/24/17 12:20 Creatinine 0.7 mg/dL (0.55-1.02) D 02/24/17 12:20 Creat Clearance w eGFR > 60 (>60) 02/24/17 12:20 Random Glucose 103 mg/dL (74-106) 02/24/17 12:20 Calcium 8.0 mg/dL (8.5-10.1) L 02/24/17 12:20 Total Bilirubin 0.3 mg/dL (0.2-1.0) D 02/24/17 12:20 AST 18 U/L (15-37) D 02/24/17 12:20 ALT 26 U/L (12-78) D 02/24/17 12:20 Alkaline Phosphatase 65 U/L (45-117) D 02/24/17 12:20 Total Protein 6.5 g/dl (6.4-8.2) 02/24/17 12:20 Albumin 3.5 g/dl (3.4-5.0) D 02/24/17 12:20 Microbiology 02/23/17 15:51 Skin - Lesion Gram Stain - Final 02/21/17 22:27 Blood - Peripheral Venous Blood Culture - Preliminary NO GROWTH OBTAINED AFTER 72 HOURS, INCUBATION TO CONTINUE FOR 2 DAYS. 02/21/17 22:10 Blood - Peripheral Venous Blood Culture - Preliminary NO GROWTH OBTAINED AFTER 72 HOURS, INCUBATION TO CONTINUE FOR 2 DAYS. Imaging: - Hand xray negative for gas - ECHO negative for vegetation Assessment: This is a 31 year old female with PMHx of polysubstance abuse, who presented to the ED with withdrawal and b/l hand cellulitis 2/2 IV drug abuse. Plan: 1) ID: B/l hand cellulitis - Continue Vancomycin (02/22- ) - Continue Meropenem (02/22- ) - F/u hand surgery consult - Appreciate ID consult 2) Psych: Polysubstance abuse - Continue Methadone taper - Continue Valium taper - Appreciate detox coonsult 3) Neuro: Hx of sciatica - Continue Gabapentin 4) F/E/N: - Monitor electrolytes - Regular diet 5) Prophylaxis: - OOB ambulating, patient reports spending most of her day in bed - Start Lovenox 40mg sq daily 6) Dispo - Requires continued inpatient care CODE STATUS: FULL CODE Visit type - Emergency Visit Emergency Visit: Yes ED Registration Date: 02/22/17 Care time: The patient presented to the Emergency Department on the above date and was hospitalized for further evaluation of their emergent condition. - New Patient This patient is new to me today: Yes Date on this admission: 02/25/17 - Critical Care Critical Care patient: No
--- NOTE | 2017-02-25 09:16 | PN ---
Progress Note (short form) - Note Progress Note: Pt seen and examined. She is a 31 year old IVDA, who injected heroin with cocaine into the back of both of her hands. She developed immediate erythema, pain, swelling, and blistering. Denies any other history of trauma. Xrays No acute pathology CT scan Shows subcutaneous edema. No fluid collection, no abscess, no osteomyelitis. AVSS Labs Blood cx Pending, neg x 2 days Wound cx neg WBC=6.5 PE B/L hands have several areas of track dias, skin pops, areas of entry for IV injection. Dorsal hands are mildly swollen, erythematous, tender, mildly warm. NVI + moderate swelling All fingers are stiff and mildly swollen but not infected Volar surfacem is fine Imp 31 IVDA s/p IV injection of heroin and cocaine on the back of both hands, with cellulitis, no abscess. No indication for surgery at this time. Rec IV abx Elevation and ROM exercises Warm soaks
[2017-02-25] MEDS: METHADONE HCL 5 MG TABLET PO SCH (09:34)
[2017-02-25] MEDS: diazePAM 5 MG TABLET PO SCH ×2 (09:34→21:00)
[2017-02-25] MEDS: GABAPENTIN 300 MG CAPSULE (FP) PO SCH (09:36)
[2017-02-25] MEDS: ENOXAPARIN NA (PORCINE) 40 MG/0.4 ML DISP.SYRIN SQ SCH (09:36)
[2017-02-25] MEDS: VANCOMYCIN 1,250 MG in DEXTROSE 5%-WATER - 250 ML IVPB SCH (09:57)
[2017-02-25] MEDS ORDERED: VANCOMYCIN 1,250 MG in DEXTROSE 5%-WATER - 250 ML IVPB SCH ×2 (10:00→18:00)
--- NOTE | 2017-02-25 15:46 | PN ---
Progress Note, Physician History of Present Illness: improving cellulitits going down swelling improved - Current Medication List Current Medications: Active Medications Diazepam (Valium -) 5 mg PO BID [facility] Stop: 02/25/17 22:01 Last Admin: 02/25/17 09:34 Dose: 5 mg Diazepam (Valium -) 5 mg PO DAILY [facility] Stop: 02/26/17 10:01 Enoxaparin Sodium (Lovenox -) 40 mg SQ DAILY [facility] Last Admin: 02/25/17 09:36 Dose: 40 mg Gabapentin (Neurontin -) 300 mg PO DAILY [facility] Last Admin: 02/25/17 09:36 Dose: 300 mg Meropenem 1 gm/ Dextrose 100 mls @ 100 mls/hr IVPB Q8H-IV [facility]ANNA[facility] PRN Reason: Protocol Last Admin: 02/25/17 09:36 Dose: 100 mls/hr Sodium Chloride (Normal Saline -) 1,000 mls @ 60 mls/hr IV ASDIR [facility] Last Admin: 02/25/17 12:00 Dose: Not Given Ibuprofen (Motrin -) 600 mg PO Q8H PRN PRN Reason: PAIN Last Admin: 02/25/17 09:34 Dose: 600 mg Methadone HCl (Dolophine -) 10 mg PO DAILY [facility] Stop: 02/26/17 10:01 Methadone HCl (Dolophine -) 5 mg PO DAILY@0600 [facility] Stop: 02/27/17 06:01 - Objective Vital Signs: Vital Signs Temperature 98.9 F 02/25/17 14:03 Pulse Rate 87 02/25/17 14:03 Respiratory Rate 20 02/25/17 14:03 Blood Pressure 109/52 02/25/17 14:03 O2 Sat by Pulse Oximetry (%) 98 02/25/17 09:00 Constitutional: Yes: No Distress, Calm Cardiovascular: Yes: Regular Rate and Rhythm Respiratory: Yes: Regular, CTA Bilaterally Gastrointestinal: Yes: Normal Bowel Sounds, Soft Musculoskeletal: Yes: Other Extremities: Yes: Other (swelling and erythema has improved) Neurological: Yes: Alert, Oriented Psychiatric: Yes: Alert, Oriented Labs: CBC, BMP 02/25/17 06:00 02/24/17 12:20 Assessment/Plan -Cellulitis of b/l hands -Leukocytosis -Hx of heroin and cocaine abuse tingling of the hand plan continue abx elevation of hand moses top vanco rest as per primary team
[2017-02-26] MEDS: MEROPENEM 1 GM in DEXTROSE 5%-WATER - 100 ML IVPB SCH ×2 (01:25→09:37)
[2017-02-26] MEDS: IBUPROFEN 600 MG TABLET (FP) PO PRN ×2 (08:39→21:17)
--- NOTE | 2017-02-26 08:46 | PN ---
Progress Note (short form) - Note Progress Note: Ortho Pt seen and examined- improving decr swelling and erythema, decr pain incr rom, nvi a/p Abx as per ID ROM exercises elevation warm soaks d/w Dr. Addison
[2017-02-26] MEDS ORDERED: PT OWN MED DRAWER 7, Y5N ONE (09:29)
[2017-02-26] MEDS: ENOXAPARIN NA (PORCINE) 40 MG/0.4 ML DISP.SYRIN SQ SCH (09:36)
[2017-02-26] MEDS: GABAPENTIN 300 MG CAPSULE (FP) PO SCH (09:38)
[2017-02-26] MEDS ORDERED: diazePAM 5 MG TABLET PO SCH (10:00)
[2017-02-26] MEDS ORDERED: METHADONE HCL 10 MG TABLET PO SCH (10:00)
--- NOTE | 2017-02-26 11:46 | PN ---
Progress Note (short form) - Note Progress Note: SUBJECTIVE: The patient was seen and examined at the bedside, she is still complaining that her hands hurt F/u reconsult for Dr. Samuel Hicks Current Medications Generic Name Dose Route Start Last Admin Trade Name Freq PRN Reason Stop Dose Admin Diazepam 10 mg 02/22/17 12:58 02/25/17 07:45 Valium - PO 02/25/17 12:58 10 mg Q4H PRN Administration WITHDRAWAL(CONT SUBST) Diazepam 5 mg 02/24/17 10:00 02/24/17 23:28 Valium - PO 02/25/17 22:01 Not Given BID HANNAH Diazepam 5 mg 02/26/17 10:00 Valium - PO 02/26/17 10:01 DAILY [facility] Gabapentin 300 mg 02/23/17 20:45 02/24/17 09:41 Neurontin - PO 300 mg DAILY [facility] Administration Vancomycin HCl 1,250 mg/ 250 mls @ 125 mls/hr 02/23/17 06:00 02/24/17 06:23 Dextrose IVPB 125 mls/hr DAILY@0600 [facility] Administration Protocol Meropenem 1 gm/ Dextrose 100 mls @ 100 mls/hr 02/22/17 13:00 02/25/17 02:40 IVPB 100 mls/hr Q8H-IV [facility] Administration Protocol Sodium Chloride 1,000 mls @ 60 mls/hr 02/24/17 10:34 02/25/17 07:46 Normal Saline - IV 60 mls/hr ASDIR [facility]ANNA[facility] Administration Ibuprofen 600 mg 02/23/17 13:44 02/25/17 01:37 Motrin - PO 600 mg Q8H PRN Administration PAIN Methadone HCl 10 mg 02/26/17 10:00 Dolophine - PO 02/26/17 10:01 DAILY [facility]ANNA[facility] Methadone HCl 15 mg 02/24/17 10:00 02/24/17 09:41 Dolophine - PO 02/25/17 10:01 15 mg DAILY [facility]ANNA[facility] Administration Methadone HCl 5 mg 02/27/17 06:00 Dolophine - PO 02/27/17 06:01 DAILY@0600 [facility] OBJECTIVE: Vital Signs Period Temp Pulse Resp BP Sys/Rincon Pulse Ox Last 24 Hr 98.3 F-99.1 F 68-92 18-20 106-136/60-87 97 Physical Exam: General: NAD, A&Ox3 Lungs: CTA bilaterally Heart: RRR, S1S2 Abd: Soft, non-tender, non-distended. Normoactive bowel sounds Ext: B/l dorsal hand with lesions. B/l hand swelling, R>L. Unable to make a fist with right hand. Cap refill <3sec. Neuro: CN 2-12 intact Microbiology 02/23/17 15:51 Skin - Lesion Gram Stain - Final 02/21/17 22:27 Blood - Peripheral Venous Blood Culture - Preliminary NO GROWTH OBTAINED AFTER 72 HOURS, INCUBATION TO CONTINUE FOR 2 DAYS. 02/21/17 22:10 Blood - Peripheral Venous Blood Culture - Preliminary NO GROWTH OBTAINED AFTER 72 HOURS, INCUBATION TO CONTINUE FOR 2 DAYS. Imaging: - Hand xray negative for gas - ECHO negative for vegetation Assessment: This is a 31 year old female with PMHx of polysubstance abuse, who presented to the ED with withdrawal and b/l hand cellulitis 2/2 IV drug abuse. Plan: 1) ID: B/l hand cellulitis - Continue Vancomycin (02/22- ) - Continue Meropenem (02/22- ) - Wam soaks - Elevation - Appreciate hand surgery consult - Appreciate ID consult 2) Psych: Polysubstance abuse - Continue Methadone taper - Continue Valium taper - Appreciate detox coonsult: recalled 3) Neuro: Hx of sciatica - Continue Gabapentin 4) F/E/N: - Monitor electrolytes - Regular diet 5) Prophylaxis: - OOB ambulating, patient reports spending most of her day in bed - Continue Lovenox 40mg sq daily 6) Dispo - Requires continued inpatient care CODE STATUS: FULL CODE Visit type - Emergency Visit Emergency Visit: Yes ED Registration Date: 02/22/17 Care time: The patient presented to the Emergency Department on the above date and was hospitalized for further evaluation of their emergent condition. - New Patient This patient is new to me today: No - Critical Care Critical Care patient: No
--- NOTE | 2017-02-26 13:55 | PN ---
Progress Note, Physician History of Present Illness: improving cellulitits has improved swelling improved - Current Medication List Current Medications: Active Medications Enoxaparin Sodium (Lovenox -) 40 mg SQ DAILY [facility] Last Admin: 02/26/17 09:36 Dose: 40 mg Gabapentin (Neurontin -) 300 mg PO DAILY [facility] Last Admin: 02/26/17 09:38 Dose: 300 mg Meropenem 1 gm/ Dextrose 100 mls @ 100 mls/hr IVPB Q8H-IV [facility] PRN Reason: Protocol Last Admin: 02/26/17 09:37 Dose: 100 mls/hr Sodium Chloride (Normal Saline -) 1,000 mls @ 60 mls/hr IV ASDIR [facility] Last Admin: 02/25/17 12:00 Dose: Not Given Ibuprofen (Motrin -) 600 mg PO Q8H PRN PRN Reason: PAIN Last Admin: 02/26/17 08:39 Dose: 600 mg Methadone HCl (Dolophine -) 5 mg PO DAILY@0600 [facility] Stop: 02/27/17 06:01 - Objective Vital Signs: Vital Signs Temperature 97.9 F 02/26/17 10:00 Pulse Rate 81 02/26/17 10:00 Respiratory Rate 18 02/26/17 10:00 Blood Pressure 137/72 02/26/17 10:00 O2 Sat by Pulse Oximetry (%) 98 02/26/17 10:00 Constitutional: Yes: No Distress, Calm HENT: Yes: Atraumatic Neck: Yes: Supple Cardiovascular: Yes: Regular Rate and Rhythm Respiratory: Yes: Regular, CTA Bilaterally Gastrointestinal: Yes: Normal Bowel Sounds, Soft Musculoskeletal: Yes: Other Extremities: Yes: Other (swelling has improved) Wound/Incision: Yes: Clean/Dry, Open to air Neurological: Yes: Alert, Oriented Psychiatric: Yes: Alert, Oriented Labs: CBC, BMP 02/25/17 06:00 02/24/17 12:20 Assessment/Plan -Cellulitis of b/l hands -Leukocytosis -Hx of heroin and cocaine abuse tingling of the hand plan will stop all abx and watch rest continue as per detox
--- NOTE | 2017-02-26 14:38 | PN ---
[facility] Progress Note (SOAP) Subjective: I was asked to see pt. for f/u. She C/O withdrawal sx. late at night & reports that she takes remeron at [facility] for a mood disorder. Objective: 02/26/17 14:34 Vital Signs - 8 hr 02/26/17 10:00 Temperature 97.9 F Pulse Rate 81 Respiratory 18 Rate Blood Pressure 137/72 O2 Sat by Pulse 98 Oximetry (%) Pt. is calm seating in bed, no obvious withdrawal sx. Assessment: 02/26/17 14:35 Heroin & Benzodiazepine detox Anxiety disorder by hx. Plan: Continue detox Obtain Psych consult to decide on remeron clonidine & flexiril to blunt w/s
[2017-02-26] MEDS ORDERED: CYCLOBENZAPRINE HCL 10 MG TABLET (FP) ONE (15:50)
[2017-02-26] MEDS: CYCLOBENZAPRINE HCL 10 MG TABLET (FP) PO SCH ×2 (15:55→21:17)
[2017-02-26] MEDS: cloNIDine HCL 0.1 MG TABLET PO SCH (21:16)
[2017-02-26] MEDS: SODIUM CHLORIDE 1,000 ML IV SCH (21:18)
[2017-02-26] MEDS ORDERED: hydrOXYzine HCL 25 MG TABLET (FP) PO ONE (21:29)
[2017-02-27] MEDS ORDERED: METHADONE HCL 5 MG TABLET PO SCH (06:00)
[2017-02-27] MEDS: GABAPENTIN 300 MG CAPSULE (FP) PO SCH (10:56)
[2017-02-27] MEDS: IBUPROFEN 600 MG TABLET (FP) PO PRN (10:57)
[2017-02-27] MEDS: cloNIDine HCL 0.1 MG TABLET PO SCH (10:57)
[2017-02-27] MEDS: CYCLOBENZAPRINE HCL 10 MG TABLET (FP) PO SCH (10:58)
[2017-02-27] MEDS: ENOXAPARIN NA (PORCINE) 40 MG/0.4 ML DISP.SYRIN SQ SCH ×2 (10:59→11:08)
[2017-02-27] MEDS: SODIUM CHLORIDE 1,000 ML IV SCH (10:59)
--- NOTE | 2017-02-27 12:52 | CON.PSY ---
Psychiatry Consult Chief Complaint: I need remeron and I need Valium. Symptoms: reports: Conduct Problems - Previous Psychiatric Treatment Outpatient: More than 6 mos ago Inpatient: None - Previous Substance Abuse Treatment Outpatient: Less than 6 mos ago Inpatient: Within the last 12 months - Reason for Previous Treatment Reason for Previous Treatment: Drug Abuse, Alcohol Abuse, Marijuana, Cocaine, Heroin or Other Narcotics - Current Medications Current Medications: Active Medications Clonidine (Catapres -) 0.1 mg PO BID [facility] Last Admin: 02/27/17 10:57 Dose: 0.1 mg Cyclobenzaprine HCl (Flexeril -) 10 mg PO BID [facility] Last Admin: 02/27/17 10:58 Dose: 10 mg Enoxaparin Sodium (Lovenox -) 40 mg SQ DAILY [facility] Last Admin: 02/27/17 11:08 Dose: Not Given Gabapentin (Neurontin -) 300 mg PO DAILY [facility] Last Admin: 02/27/17 10:56 Dose: 300 mg Sodium Chloride (Normal Saline -) 1,000 mls @ 60 mls/hr IV ASDIR [facility] Last Admin: 02/27/17 10:59 Dose: Not Given Ibuprofen (Motrin -) 600 mg PO Q8H PRN PRN Reason: PAIN Last Admin: 02/27/17 10:57 Dose: 600 mg - Allergies Allergies: Allergies Allergy/AdvReac Type Severity Reaction Status Date / Time amoxicillin Allergy Verified 02/21/17 19:32 sulfamethoxazole Allergy Verified 02/21/17 19:32 [From Bactrim] trimethoprim [From Bactrim] Allergy Verified 02/21/17 19:32 - Current Living Status Usual Living Arrangement: Alone - Current Mental Status Evaluation Appearance: Disheveled Attitude: Guarded - Affect Affect: Constrictive Appropriateness: Not Appropriate - Mood Mood: Angry - Speech/Language Expressive: Coherent Receptive: Age Appropriate Comprehension of Spoken Words - Psychomotor Activity Psychomotor Activity: Normal - Thought Process Thought Process: Intact - Thought Content Hallucinations: Absent Delusions: Absent - Self Perception Self Perception: No Impairment - Cognition Attention: Alert Orientation: Time Memory, Immediate Recall: Intact Memory, Short Term: 3/3 Memory, Remote with Promptin/3 - Concentration Serial Sevens Intact: Yes Simple Calculations Intact: Yes - Abstraction Proverb Interpretation: Intact Judgement: Moderately Impaired - Insight Insight: Intact - Impulse Control Impulse Control: Minimally Impaired - Suicidal Ideation Suicidal Ideation: No - Homicidal Ideation Homicidal Ideation: No Assessment/Plan Do not recemmend any psych meds at this time.
--- NOTE | 2017-02-27 16:17 | DS ---
Physical Exam: SUBJECTIVE: Patient seen and examined. she is stable off abx. She is a little nervous to go home, she can't go to rehab, she will try to go back to [facility] OBJECTIVE: Vital Signs Period Temp Pulse Resp BP Sys/Rincon Pulse Ox Last 24 Hr 98.0 F-98.7 F 64-78 18-20 108-128/63-81 99 HOSPITAL COURSE: Date of Admission:02/22/17 Date of Discharge: 02/27/17 Minutes to complete discharge: 37 Discharge Summary Reason For Visit: CELLULITIS OF HAND,DEPENDENT DRUG ABUSE Current Active Problems Allergic reaction (Acute) Cellulitis of hand (Acute) Drug abuse and dependence (Acute) Sedative, hypnotic or anxiolytic dependence with withdrawal, uncomplicated ( Acute) Rod-Dharmesh syndrome (Acute) Hospital Course: Initial Hospital Course: Briefly, this 31 year old o F w/hx of IVDA of heroine and cocaine, chronic back pain presented to the ER with bilateral hand and feet swelling that began the night prior. Pt was recently on IV abx and discharged February 17 with Bactrim. Pt was prescribed Bactrim from [facility] for cellulitis, she took 2 doses and then noted b/l hand and feet swelling. Pt states she uses heroine and cocaine via IV and only uses her hands as sites for IVD and uses it daily. She does not share needles, at times she uses her spit to wet the site or needle. Subsequent Hospital Course/Progress Note/Discharge Summary by a/p: Assessment: 31 year old female with PMHx of polysubstance abuse, who presented to the ED with heroine withdrawal and b/l hand cellulitis 2/2 IV drug abuse. Plan: 1. B/l hand cellulitis - Continue Vancomycin (02/22- 02/27) - Continue Meropenem (02/22- 02/27) - Warm soaks per hand surgery - No surgical intervention - Elevation - ECHO negative for vegetation 2. Polysubstance abuse - Completed Methadone taper - Completed Valium taper - Per psych no psych meds needed - To follow up with rehab center 3. Hx of sciatica - Continue Gabapentin Dispo: - Home CODE STATUS: FULL CODE Condition: Stable - Instructions Diet, Activity, Other Instructions: Please return to the ED for any new, persistent, or worsening symptoms. Follow up with your PCP in 1 week Follow up with rehab center next week [place] Abstain from any further IV drug us Referrals: STAFF,NOT ON [Primary Care Provider] - (Follow up with PCP ) Disposition: HOME - Home Medications Comprehensive Discharge Medication List: Ambulatory Orders Gabapentin [Gralise] 1 tab PO DAILY 02/21/17 This patient is new to me today: No Emergency Visit: Yes ED Registration Date: 02/22/17 Care time: The patient presented to the Emergency Department on the above date and was hospitalized for further evaluation of their emergent condition. Critical Care patient: No - Discharge Referral Referred to [facility] No
--- NOTE | 2017-02-27 17:25 | PN ---
Progress Note, Physician History of Present Illness: improving cellulitits has improved swelling improved patient has a small fluctuant area on the lateral side of the rt hand - Current Medication List Current Medications: Active Medications Clonidine (Catapres -) 0.1 mg PO BID [facility] Last Admin: 02/27/17 10:57 Dose: 0.1 mg Cyclobenzaprine HCl (Flexeril -) 10 mg PO BID [facility] Last Admin: 02/27/17 10:58 Dose: 10 mg Enoxaparin Sodium (Lovenox -) 40 mg SQ DAILY [facility] Last Admin: 02/27/17 11:08 Dose: Not Given Gabapentin (Neurontin -) 300 mg PO DAILY [facility] Last Admin: 02/27/17 10:56 Dose: 300 mg Sodium Chloride (Normal Saline -) 1,000 mls @ 60 mls/hr IV ASDIR [facility] Last Admin: 02/27/17 10:59 Dose: Not Given Ibuprofen (Motrin -) 600 mg PO Q8H PRN PRN Reason: PAIN Last Admin: 02/27/17 10:57 Dose: 600 mg - Objective Vital Signs: Vital Signs Temperature 98.4 F 02/27/17 15:16 Pulse Rate 72 02/27/17 15:16 Respiratory Rate 20 02/27/17 15:16 Blood Pressure 110/64 02/27/17 15:16 O2 Sat by Pulse Oximetry (%) 99 02/26/17 21:00 Constitutional: Yes: No Distress, Calm Cardiovascular: Yes: Regular Rate and Rhythm Respiratory: Yes: Regular, CTA Bilaterally Gastrointestinal: Yes: Normal Bowel Sounds, Soft Musculoskeletal: Yes: Other Extremities: Yes: Other (welling and wounds have improved small arae of fluctation on the rt hand) Wound/Incision: Yes: Clean/Dry Neurological: Yes: Alert, Oriented Psychiatric: Yes: Alert, Oriented Labs: CBC, BMP 02/25/17 06:00 02/24/17 12:20 Assessment/Plan -Cellulitis of b/l hands -Leukocytosis -Hx of heroin and cocaine abuse tingling of the hand plan get and u/s of the hand if the u/s shows induration then she will need oral abx for another 10 days if it shows abscess then drainage if it shows nothing then no need for abx
[2017-02-28 00:07] VITALS: BP 120/75; PULSE 76; TEMP 98.7
--- NOTE | 2017-03-02 11:43 | HOSP ---
Physical Examination Vital Signs: Vital Signs Temperature 98.7 F 02/27/17 19:07 Pulse Rate 76 02/27/17 19:07 Respiratory Rate 20 02/27/17 21:00 Blood Pressure 120/75 02/27/17 19:07 O2 Sat by Pulse Oximetry (%) 99 02/27/17 21:00 Findings/Remarks: The patient called the office stating she feels like she is having an allergic reaction to Levaquin. She reports taking 2 doses and now reports hives and a hoarse voice. She denies any lip or tongue swelling. She is also reporting increased erythema to b/l hands and anticubital regions. Instructed the patient to immediately return to the ED for further evaluation. Labs: CBC, BMP 02/25/17 06:00 02/24/17 12:20
== END 2017-02-27 21:32 | disposition home or self-care (01) | DRG 383 ==
LOC: JER 18:49 → JERBED 02-22 01:13 → UNDOADMIN 02-22 01:13 → J7W 02-22 04:16
PROVIDERS: ADMIT Internal Medicine; ATTEND Nurse Practitioner Acute Care
PROC: HZ2ZZZZ Detoxification Services for Substance Abuse Treatment (ICD-10-PCS; principal; 2017-02-22)
DX: L03.114 Cellulitis of left upper limb (principal); L03.113 Cellulitis of right upper limb; D72.829 Elevated white blood cell count, unspecified; G89.29 Other chronic pain; M54.9 Dorsalgia, unspecified; F14.20 Cocaine dependence, uncomplicated; F17.210 Nicotine dependence, cigarettes, uncomplicated; F11.23 Opioid dependence with withdrawal; L51.1 Stevens-Johnson syndrome; M54.30 Sciatica, unspecified side; S00.521A Blister (nonthermal) of lip, initial encounter; S90.822A Blister (nonthermal), left foot, initial encounter; S90.821A Blister (nonthermal), right foot, initial encounter; X58.XXXA Exposure to other specified factors, initial encounter; Y92.9 Unspecified place or not applicable; B95.7 Other staphylococcus as the cause of diseases classified elsewhere
CPT/HCPCS: 36415; 73130-TC-LT; 73130-TC-RT; 73200-TC-RT; 76882; 80053; 80307; 83605; 84703; 85025; 87040; 87070; 87205; 93306-TC; 99283-25; G0480

== ENCOUNTER 2017-05-07 08:13 | Inpatient (IN) | payer BC ==
[2017-05-07 09:02] VITALS: BMI 24.3
--- NOTE | 2017-05-07 18:00 | HP ---
Admission [facility] Allergies/Adverse Reactions: Allergies Allergy/AdvReac Type Severity Reaction Status Date / Time amoxicillin Allergy Hives Verified 05/07/17 19:01 sulfamethoxazole Allergy blisters Verified 05/07/17 19:01 [From Bactrim] trimethoprim [From Bactrim] Allergy blisters Verified 05/07/17 19:01 - Ebola screening Have you been sick,other than usual withdrawal symptoms: No Patient History - Patient Medical History Hx Anemia: No Hx Asthma: No Hx Chronic Obstructive Pulmonary Disease (COPD): No Hx Cancer: No Hx Cardiac Disorders: No Hx Congestive Heart Failure: No Hx Hypertension: No Hx Hypercholesterolemia: No Hx Pacemaker: No HX Cerebrovascular Accident: No Hx Seizures: No Hx Dementia: No Hx Diabetes: No Hx Gastrointestinal Disorders: No Hx Liver Disease: No Hx Genitourinary Disorders: No Hx Sexually Transmitted Disorders: No Hx Renal Disease (ESRD): No Hx Thyroid Disease: No Hx Human Immunodeficiency Virus (HIV): No Hx Hepatitis C: No Hx Depression: Yes Hx Suicide Attempt: No Hx Bipolar Disorder: No Hx Schizophrenia: No - Patient Surgical History Past Surgical History: No Hx Neurologic Surgery: No Hx Cataract Extraction: No Hx Cardiac Surgery: No Hx Lung Surgery: No Hx Breast Surgery: No Hx Breast Biopsy: No Hx Abdominal Surgery: No Hx Appendectomy: No Hx Cholecystectomy: No Hx Genitourinary Surgery: No Hx Section: No Hx Orthopedic Surgery: No Anesthesia Reaction: No - PPD History Previous Implant?: Yes Documented Results: Negative w/proof Implanted On Prior [facility] Admission?: Yes Date: 11/17/16 Results: 0 mm - Reproductive History Last Menstrual Period: 05/06/17 Patient : No - Smoking Cessation Smoking history: Smoker current status UNK Have you smoked in the past 12 months: No Hx Chewing Tobacco Use: No Initiated information on smoking cessation: No - Substances Abused Heroin Route: Injection Frequency: Daily Amount used: 10 bags Age of first use: 25 Date of Last Use: 05/06/17 Cocaine Route: Injection Frequency: Daily Amount used: $60-80 Age of first use: 30 Date of Last Use: 05/06/17 Xanax Route: Oral Frequency: Daily Amount used: 4-6 mg. Age of first use: 30 Date of Last Use: 05/01/17 Klonopin Route: Oral Frequency: 1-2 times per week Amount used: 2 mg. Age of first use: 30 Date of Last Use: 05/05/17 Family Disease History - Family Disease History Family Disease History: Diabetes: Grandparent, Father (HEROIN DEPENDENCE ), Heart Disease: Grandparent, Other: Father Admission Physical Exam [facility] - Vital Signs Vital Signs: Vital Signs - 24 hr 05/07/17 08:59 Temperature 97.5 F L Pulse Rate 90 Respiratory 18 Rate Blood Pressure 130/74 Screened but not Admitted - Documentation of Visit Screened but not Admitted: Yes Left Prior to Completion of Assessment: No Insurance Authorization Denied: No Patient Does Not Meet Criteria for Admission: No Level of Care Recommended at this Time: ER Evaluation/Care Alternative Treatment/Assisted Info Provided: No Additional Information/Explanation: 31 years old female admitted for opiate and xanax detox, multiple open wounds, sore, swelling, erythema, and pain, ambulance had been called, information provided to the ER Misty. may return to [facility] for detox if medically cleared [facility] Breath Alcohol Content Breath Alcohol Content: 0 Vital Signs - Vital Signs Vital Signs Refused: No Temperature: 97.5 F Temperature Source: Oral Pulse Rate: 90 Respiratory Rate: 18 Blood Pressure: 130/74 BP Location: Left Arm Blood Pressure Position: Sitting - Height Height: 5 ft 5 in - Weight Weight: 146 lb Weight Measurement Method: Standing Scale Body Mass Index (BMI): 24.3 - Bowel Function Bowel Movement: Yes Urine Pregancy Test - Result Urine Test Results: Negative- NO Line Present Urine Drug Screen - Control Is Test Valid: Yes - Results Drug Screen Negative: No Urine Drug Screen Results: THC-Marijuana, VITALY-Cocaine, OPI-Opiates, BZO- Benzodiazepines, MTD-Methadone
--- NOTE | 2017-05-08 01:13 | HP ---
COWS - Scale Resting Pulse: 1= AK 81-100 Sweatin=Flushed/Facial Moisture Restless Observation: 3= Extraneous Movement Pupil Size: 1= Pupils >than Normal Bone or Joint Aches: 2= Severe Diffuse Aches Runny Nose/ Eye Tearin= Runny Nose/Eyes GI Upset > 30mins: 1= Stomach Cramp Tremor Observation: 2= Slight Tremor Visible Yawning Observation: 1= 1-2x During Session Anxiety or Irritability: 4=Extreme Anxiety Goose Flesh Skin: 3=Piloerection COWS Score: 22 CIWA Score - CIWA Score Nausea/Vomitin Muscle Tremors: 3 Anxiety: 4-Mod. Anxious/Guarded Agitation: 4-Moderately Restless Paroxysmal Sweats: 2 Orientation: 1-Uncertain about Date Tacttile Disturbances: 0-None Auditory Disturbances: 0-None Visual Disturbances: 0-None Headache: 0-None Present CIWA-Ar Total Score: 17 Admission ROS BHS - HPI Chief Complaint: WITHDRAWALS SYMPTOMS Allergies/Adverse Reactions: Allergies Allergy/AdvReac Type Severity Reaction Status Date / Time amoxicillin Allergy Hives Verified 05/07/17 19:01 sulfamethoxazole Allergy blisters Verified 05/07/17 19:01 [From Bactrim] trimethoprim [From Bactrim] Allergy blisters Verified 05/07/17 19:01 History of Present Illness: 31 Y.O. WOMAN WITH A HISTORY OF HEROIN, COCAINE AND BENZODIAZEPINE DEPENDENCE IS HERE DETOX. SHE RETURNS FROM [facility] ER AFTER BEING EVALUATED FOR WOUND INFECTIONS OF BOTH HANDS. SHE WAS DISCHARGED FROM THE ER IN STABLE CONDITION AND WAS ORDERED 10 DAY COURSE OF KEFLEX. Exam Limitations: No Limitations - Ebola screening Have you traveled outside of the country in the last 21 days: No Have you been sick,other than usual withdrawal symptoms: No - Review of Systems Constitutional: Chills, Loss of Appetite, Night Sweats, Changes in sleep EENT: reports: Tearing, Nose Congestion Respiratory: reports: No Symptoms reported Cardiac: reports: No Symptoms Reported GI: reports: No Symptoms Reported : reports: No Symptoms Reported Musculoskeletal: reports: Back Pain, Joint Pain, Neck Pain Integumentary: reports: No Symptoms Reported Neuro: reports: Headache, Tremors Endocrine: reports: No Symptoms Reported Hematology: reports: No Symptoms Reported Psychiatric: reports: Judgement Intact, Mood/Affect Appropiate, Anxious, Depressed Other Systems: Reviewed and Negative Patient History - Patient Medical History Hx Anemia: No Hx Asthma: No Hx Chronic Obstructive Pulmonary Disease (COPD): No Hx Cancer: No Hx Cardiac Disorders: No Hx Congestive Heart Failure: No Hx Hypertension: No Hx Hypercholesterolemia: No Hx Pacemaker: No HX Cerebrovascular Accident: No Hx Seizures: No Hx Dementia: No Hx Diabetes: No Hx Gastrointestinal Disorders: No Hx Liver Disease: No Hx Genitourinary Disorders: No Hx Sexually Transmitted Disorders: No Hx Renal Disease (ESRD): No Hx Thyroid Disease: No Hx Human Immunodeficiency Virus (HIV): No Hx Hepatitis C: No Hx Depression: Yes Hx Suicide Attempt: No Hx Bipolar Disorder: No Hx Schizophrenia: No - Patient Surgical History Past Surgical History: No Hx Neurologic Surgery: No Hx Cataract Extraction: No Hx Cardiac Surgery: No Hx Lung Surgery: No Hx Breast Surgery: No Hx Breast Biopsy: No Hx Abdominal Surgery: No Hx Appendectomy: No Hx Cholecystectomy: No Hx Genitourinary Surgery: No Hx Section: No Hx Orthopedic Surgery: No Anesthesia Reaction: No - PPD History Previous Implant?: Yes Documented Results: Negative w/proof Implanted On Prior [facility] Admission?: Yes Date: 11/17/16 Results: 0 mm - Reproductive History Patient is a Female of Child Bearing Age (11 -55 yrs old): Yes Last Menstrual Period: 05/06/17 Patient : No - Smoking Cessation Smoking history: Smoker current status UNK Have you smoked in the past 12 months: No Aproximately how many cigarettes per day: 20 Hx Chewing Tobacco Use: No Initiated information on smoking cessation: No 'Breaking Loose' booklet given: 05/08/17 - Substance & Tx. History Hx Alcohol Use: No Hx Substance Use: Yes Substance Use Type: Heroin Hx Substance Use Treatment: Yes (DETOX: 10/2016-LEFT AMA; REHAB: CAN'T RECALL LAST ADMISSION ) - Substances Abused Heroin Route: Injection Frequency: Daily Amount used: 10 bags Age of first use: 25 Date of Last Use: 05/06/17 Cocaine Route: Injection Frequency: Daily Amount used: $60-80 Age of first use: 30 Date of Last Use: 05/06/17 Xanax Route: Oral Frequency: Daily Amount used: 4-6 mg. Age of first use: 30 Date of Last Use: 05/01/17 Klonopin Route: Oral Frequency: 1-2 times per week Amount used: 2 mg. Age of first use: 30 Date of Last Use: 05/05/17 Family Disease History - Family Disease History Family Disease History: Diabetes: Grandparent, Father (HEROIN DEPENDENCE ), Heart Disease: Grandparent, Other: Father Admission Physical Exam [facility] - Vital Signs Vital Signs: Vital Signs - 24 hr 05/07/17 05/07/17 08:59 22:49 Temperature 97.5 F L 97.5 F L Pulse Rate 90 90 Respiratory 18 18 Rate Blood Pressure 130/74 130/74 - Physical General Appearance: Yes: Tremorous, Irritable, Sweating, Anxious HEENTM: Yes: Hearing grossly Normal, Normocephalic, Normal Voice Respiratory: Yes: Lungs Clear, Normal Breath Sounds, No Respiratory Distress, No Accessory Muscle Use Neck: Yes: No masses,lesions,Nodules, Trachea in good position Breast: Yes: Breast Exam Deferred Cardiology: Yes: Regular Rhythm, Regular Rate Abdominal: Yes: Flat, Soft Genitourinary: Yes: Other (NO COMPLAINTS REPORTED) Back: Yes: Normal Inspection Musculoskeletal: Yes: Back pain Extremities: Yes: Normal Inspection, Normal Range of Motion, Non-Tender Neurological: Yes: Alert, Normal Mood/Affect, Normal Response Integumentary: Yes: Track Aranda, Other (WOUNDS TO B/L HANDS) Lymphatic: Yes: Within Normal Limits - Diagnostic (1) Opioid dependence with withdrawal Current Visit: No Status: Acute (2) Sedative, hypnotic or anxiolytic dependence with withdrawal, uncomplicated Current Visit: Yes Status: Chronic (3) Cannabis dependence, uncomplicated Current Visit: Yes Status: Chronic (4) Nicotine dependence Current Visit: Yes Status: Chronic Qualifiers: Nicotine product type: cigarettes Substance use status: uncomplicated Qualified Code(s): F17.210 - Nicotine dependence, cigarettes, uncomplicated Cleared for Admission [facility] - Detox or Rehab [facility] Level of Care: Medically Managed Detox Regimen/Protocol: Methadone/Valium [facility] Breath Alcohol Content Breath Alcohol Content: 0 Urine Pregancy Test - Result Urine Test Results: Negative- NO Line Present Urine Drug Screen - Results Drug Screen Negative: No Urine Drug Screen Results: THC-Marijuana, VITALY-Cocaine, OPI-Opiates, BZO- Benzodiazepines, MTD-Methadone
[2017-05-08] MEDS ORDERED: MAGNESIUM HYDROX 2400MG/30ML ORAL SUSPENSION 30 ML CUP PO PRN (01:34)
[2017-05-08] MEDS ORDERED: METHADONE HCL 10 MG TABLET (FOR DETOX USE ONLY) PO ONE ×3 (01:34→23:00)
[2017-05-08] MEDS ORDERED: diphenhydrAMINE HCL 50 MG CAPSULE PO PRN (01:34)
[2017-05-08] MEDS ORDERED: MAGNESIUM CITRATE 300 ML BOTTLE PO PRN (01:34)
[2017-05-08] MEDS ORDERED: MENTHOL/PHENOL 1 EACH UD MM PRN (01:34)
[2017-05-08] MEDS ORDERED: guaiFENesin/D-METHORPHAN HB 10 ML UNIT-DOSE CUPS PO PRN (01:34)
[2017-05-08] MEDS ORDERED: diazePAM 5 MG TABLET PO ONE (01:34)
[2017-05-08] MEDS ORDERED: LOPERAMIDE HCL 2 MG CAPSULE PO PRN (01:34)
[2017-05-08] MEDS ORDERED: ACETAMINOPHEN 325 MG TABLET (FP) PO PRN (01:34)
[2017-05-08] MEDS ORDERED: P-EPHED 60MG/TRIPROLIDI 2.5MG TABLET PO PRN (01:34)
[2017-05-08] MEDS: diazePAM 5 MG TABLET PO SCH ×3 (05:59→22:39)
[2017-05-08] MEDS: IBUPROFEN 400 MG TABLET (FP) PO PRN ×3 (06:22→20:14)
[2017-05-08] MEDS: diazePAM 5 MG TABLET PO PRN ×3 (09:19→20:13)
[2017-05-08] MEDS: CEPHALEXIN MONOHYDRATE 500 MG CAPSULE (UD) PO SCH ×2 (10:32→22:39)
[2017-05-08] MEDS: PRENATAL VITAMINS W/ FOLIC ACID TABLET (FP) PO SCH (10:32)
[2017-05-08] MEDS: NICOTINE 21 MG/24 HOURS TOPICAL PATCH TD SCH (10:33)
[2017-05-08 11:00] LABS: MCH 26.9 pg (25.7-33.7); MCHC 32.4 g/dl (32.0-36.0); MEAN CELL VOLUME 82.8 fl (80-96); MEAN PLT VOLUME 9.2 fl (7.5-11.1); PLATELET COUNT 292 K/MM3 (134-434); RDW 15.4 % (11.6-15.6)
[2017-05-08 11:02] LABS: ALBUMIN 3.6 g/dl (3.4-5.0); ANION GAP 9 (8-16); BILIRUBIN,TOTAL 0.3 mg/dL (0.2-1.0); CALCIUM 8.5 mg/dL (8.5-10.1); CO2 24 mmol/L (21-32); CREATININE 0.8 mg/dL (0.55-1.02); GLUCOSE,RANDOM 68 mg/dL (74-106); SGOT/AST 27 U/L (15-37); SGPT/ALT 32 U/L (12-78); TOT PROT 6.7 g/dl (6.4-8.2)
[2017-05-08 11:03] LABS: ALK PHOS 71 U/L (45-117)
--- NOTE | 2017-05-08 12:58 | PN ---
S CIWA - CIWA Score Nausea/Vomitin Muscle Tremors: 3 Anxiety: 3 Agitation: 3 Paroxysmal Sweats: 3 Orientation: 0-Oriented Tacttile Disturbances: 2-Mild Itch/Numbness/Burn Auditory Disturbances: 0-None Visual Disturbances: 0-None Headache: 2-Mild CIWA-Ar Total Score: 18 BHS COWS - Scale Resting Pulse: 0= DE 80 or Below Sweatin= Chills/Flushing Restless Observation: 3= Extraneous Movement Pupil Size: 0= Normal to Room Light Bone or Joint Aches: 2= Severe Diffuse Aches Runny Nose/ Eye Tearin= Nasal Congestion GI Upset > 30mins: 2= Nausea/Diarrhea Tremor Observation of Outstretched Hands: 1= Tremor [place], Not Seen Yawning Observation: 0= None Anxiety or Irritability: 2=Irritable/Anxious Goose Flesh Skin: 3=Piloerection COWS Score: 15 BHS Progress Note (SOAP) Subjective: shakes, sweats, irritability, interrupted sleep, hand pain Objective: 05/08/17 12:56 Vital Signs - 8 hr 05/08/17 05/08/17 06:53 10:00 Temperature 97.8 F 99.1 F Pulse Rate 76 92 H Respiratory 16 18 Rate Blood Pressure 105/62 134/67 Laboratory Last Values WBC 7.0 K/mm3 (4.0-10.0) 05/08/17 07:50 RBC 4.46 M/mm3 (3.60-5.2) 05/08/17 07:50 Hgb 12.0 GM/dL (10.7-15.3) 05/08/17 07:50 Hct 36.9 % (32.4-45.2) 05/08/17 07:50 MCV 82.8 fl (80-96) 05/08/17 07:50 MCH 26.9 pg (25.7-33.7) 05/08/17 07:50 MCHC 32.4 g/dl (32.0-36.0) 05/08/17 07:50 RDW 15.4 % (11.6-15.6) 05/08/17 07:50 Plt Count 292 K/MM3 (134-434) 05/08/17 07:50 MPV 9.2 fl (7.5-11.1) 05/08/17 07:50 Sodium 139 mmol/L (136-145) 05/08/17 07:50 Potassium 4.2 mmol/L (3.5-5.1) 05/08/17 07:50 Chloride 106 mmol/L (98-107) 05/08/17 07:50 Carbon Dioxide 24 mmol/L (21-32) 05/08/17 07:50 Anion Gap 9 (8-16) 05/08/17 07:50 BUN 19 mg/dL (7-18) H 05/08/17 07:50 Creatinine 0.8 mg/dL (0.55-1.02) 05/08/17 07:50 Creat Clearance w eGFR > 60 (>60) 05/08/17 07:50 Random Glucose 68 mg/dL (74-106) L D 05/08/17 07:50 Calcium 8.5 mg/dL (8.5-10.1) 05/08/17 07:50 Total Bilirubin 0.3 mg/dL (0.2-1.0) D 05/08/17 07:50 AST 27 U/L (15-37) 05/08/17 07:50 ALT 32 U/L (12-78) 05/08/17 07:50 Alkaline Phosphatase 71 U/L (45-117) 05/08/17 07:50 Total Protein 6.7 g/dl (6.4-8.2) 05/08/17 07:50 Albumin 3.6 g/dl (3.4-5.0) 05/08/17 07:50 labs noted Assessment: 05/08/17 12:57 withdrawal sx, cellulitis Plan: continue detox, continue keflex
[2017-05-08] MEDS: GABAPENTIN 400 MG CAPSULE (FP) PO SCH ×2 (14:42→22:40)
[2017-05-08] MEDS: NICOTINE POLACRILEX 2 MG GUM BC PRN (15:42)
[2017-05-08 16:14] LABS: URINE APPEARANCE SLCLOUDY; URINE BILIRUBIN NEGATIVE (NEGATIVE); URINE BLOOD 3+ (NEGATIVE); URINE COLOR LTYELLOW; URINE GLUCOSE (UA) NEGATIVE (NEGATIVE); URINE KETONE NEGATIVE (NEGATIVE); URINE LEUK ESTERASE NEGATIVE (NEGATIVE); URINE NITRITE NEGATIVE (NEGATIVE); URINE PROTEIN NEGATIVE (NEGATIVE); URINE UROBILINOGEN NEGATIVE mg/dL (0.2-1.0)
[2017-05-08 16:20] LABS: CALCIUM OXALATE CRYSTALS RARE /hpf (NONE SEEN); URINE BACTERIA FEW /hpf (NONE SEEN); URINE MUCUS RARE; URINE RBC 178 /hpf (0-3); URINE WBC 4 /hpf (3-5)
--- NOTE | 2017-05-08 16:44 | CONSULT ---
[facility] Psychiatric Consult - Data Date of interview: 05/08/17 Admission source: [facility] Identifying data: Readmission to [facility] for this 31 y/o AA female seeking detox treatment on for heroin,cocaine,marihuana and xanax dependence.Patient is single without children,domiciled,unemployed and supported on food stamps. Substance Abuse History: Confirmed by patient. Smoking Cessation. Smoking history: Smoker current status UNK. Have you smoked in the past 12 months: No. Hx Chewing Tobacco Use: No. Initiated information on smoking cessation: No. - Substances Abused. Heroin. Route: Injection. Frequency: Daily. Amount used: 10 bags. Age of first use: 25. Date of Last Use: 05/06/17. Cocaine. Route: Injection. Frequency: Daily. Amount used: $60-80. Age of first use: 30. Date of Last Use: 05/06/17. Xanax. Route: Oral. Frequency: Daily. Amount used: 4-6 mg. Age of first use: 30. Date of Last Use: 05/01/17. Klonopin. Route: Oral. Frequency: 1-2 times per week. Amount used: 2 mg. Age of first use: 30. Date of Last Use: 05/05/17 Medical History: Cellulitis of both hands.History of Rod Johnsons syndrome ( sulfas). Psychiatric History: Patient admits to a history of one brief psychiatric hospitalization at [facility] two years ago.Diagnosed with Bipolar Disorder.Prescribed remeron 45 mg/hs + trazodone 50 mg po hs.Dropped out of psychiatric OPD care (last script for remeron is dated 01/08/17 ; no evidence of trazodone).Ms Hutchinson endorses a history of suicide attempts (self-mutilation). Physical/Sexual Abuse/Trauma History: Patient denies. Additional Comment: Urine Drug Screen Results: THC-Marijuana, VITALY-Cocaine, OPI- Opiates, BZO-Benzodiazepines, MTD-Methadone Mental Status Exam - Mental Status Exam Alert and Oriented to: Time, Place, Person Cognitive Function: Good Patient Appearance: Well Groomed (swollen hands ; ulcers on both hands) Mood: Angry, Nervous, Irritable Affect: Mood Congruent Patient Behavior: Impulsive (argumentative and medication-seeking), Talkative Speech Pattern: Clear Voice Loudness: Normal Thought Process: Goal Oriented Thought Disorder: Not Present Hallucinations: Denies Suicidal Ideation: Denies Homicidal Ideation: Denies Insight/Judgement: Poor Sleep: Poorly, Difficulty falling asleep Appetite: Good Muscle strength/Tone: Normal Gait/Station: Normal Psychiatric Findings - Problem List ([place] 1, 2,3) (1) Opioid dependence with withdrawal Current Visit: Yes Status: Acute (2) Sedative, hypnotic or anxiolytic dependence with withdrawal, uncomplicated Current Visit: Yes Status: Acute (3) Cannabis dependence, uncomplicated Current Visit: Yes Status: Acute (4) Cocaine dependence Current Visit: Yes Status: Acute (5) Nicotine dependence Current Visit: Yes Status: Acute Qualifiers: Nicotine product type: cigarettes Substance use status: uncomplicated Qualified Code(s): F17.210 - Nicotine dependence, cigarettes, uncomplicated (6) Drug-induced mood disorder Current Visit: Yes Status: Acute (7) Personality disorder Current Visit: Yes Status: Suspected (8) Abscess and cellulitis Current Visit: Yes Status: Acute (9) Cellulitis of hand Current Visit: Yes Status: Acute (10) Insomnia Current Visit: Yes Status: Acute - Initial Treatment Plan Initial Treatment Plan: Psychoeducation.Detoxification.Medications : remeron 15 mg po hs.Side effects/benefits discussed with the patient.She agrees with careplan.Observation.
[2017-05-08] MEDS ORDERED: MIRTAZAPINE 15 MG TABLET (FP) PO SCH (22:00)
[2017-05-08] MEDS: THIAMINE HCL 100 MG TABLET (FP) PO SCH (22:40)
[2017-05-09] MEDS: diazePAM 5 MG TABLET PO SCH ×3 (05:53→22:21)
[2017-05-09] MEDS: GABAPENTIN 400 MG CAPSULE (FP) PO SCH (05:53)
[2017-05-09] MEDS: IBUPROFEN 400 MG TABLET (FP) PO PRN ×3 (05:55→22:21)
[2017-05-09] MEDS: diazePAM 5 MG TABLET PO PRN ×3 (09:06→18:58)
--- NOTE | 2017-05-09 09:56 | EKG ---
Test Reason : Blood Pressure : / mmHG Vent. Rate : 078 BPM Atrial Rate : 078 BPM P-R Int : 126 ms QRS Dur : 082 ms QT Int : 396 ms P-R-T Axes : 052 065 031 degrees QTc Int : 451 ms NORMAL SINUS RHYTHM NORMAL ECG WHEN COMPARED WITH ECG OF 15-NOV-2016 01:41, NO SIGNIFICANT CHANGE WAS FOUND Confirmed by MD MINGO, OSVALDO ([id number]) on 05/09/2017 9:55:47 AM Referred By: Confirmed By:OSVALDO AGUILA MD
[2017-05-09] MEDS ORDERED: METHADONE HCL 10 MG TABLET (FOR DETOX USE ONLY) PO SCH (10:00)
[2017-05-09] MEDS: CEPHALEXIN MONOHYDRATE 500 MG CAPSULE (UD) PO SCH ×2 (10:11→22:20)
[2017-05-09] MEDS: BACITRACIN 15 GM TUBE TOPICAL OINTMENT TP SCH (10:12)
[2017-05-09] MEDS: PRENATAL VITAMINS W/ FOLIC ACID TABLET (FP) PO SCH (10:12)
[2017-05-09] MEDS: NICOTINE 21 MG/24 HOURS TOPICAL PATCH TD SCH (10:14)
[2017-05-09] MEDS: NICOTINE POLACRILEX 2 MG GUM BC PRN ×2 (10:15→15:47)
--- NOTE | 2017-05-09 11:43 | PN ---
[facility] CIWA - CIWA Score Nausea/Vomitin-Mild Nausea/No Vomiting Muscle Tremors: 4-Moderate,w/Arms Extend Anxiety: 5 Agitation: 5 Paroxysmal Sweats: 3 Orientation: 0-Oriented Tacttile Disturbances: 0-None Auditory Disturbances: 0-None Visual Disturbances: 0-None Headache: 1-Very Mild CIWA-Ar Total Score: 19 BHS COWS - Scale Resting Pulse: 1= HI 81-100 Sweatin=Flushed/Facial Moisture Restless Observation: 1= Difficult to Sit Still Pupil Size: 0= Normal to Room Light Bone or Joint Aches: 1= Mild Discomfort Runny Nose/ Eye Tearin= Runny Nose/Eyes GI Upset > 30mins: 1= Stomach Cramp Tremor Observation of Outstretched Hands: 2= Slight Tremor Visible Yawning Observation: 1= 1-2x During Session Anxiety or Irritability: 4=Extreme Anxiety Goose Flesh Skin: 0=Smooth Skin COWS Score: 15 BHS Progress Note (SOAP) Subjective: Patient is having a panic attack, she is very anxious,restless,agitated & pacing. Objective: 05/09/17 11:40 Last Vital Signs Temp Pulse Resp BP Pulse Ox 98.1 F 97 H 18 123/78 05/09/17 10:00 05/09/17 10:00 05/09/17 10:00 05/09/17 10:00 Laboratory Tests 05/08/17 05/08/17 05/08/17 07:50 07:50 07:50 WBC 7.0 RBC 4.46 Hgb 12.0 Hct 36.9 MCV 82.8 MCH 26.9 MCHC 32.4 RDW 15.4 Plt Count 292 MPV 9.2 Sodium 139 Potassium 4.2 Chloride 106 Carbon Dioxide 24 Anion Gap 9 BUN 19 H Creatinine 0.8 Creat Clearance w eGFR > 60 Random Glucose 68 L D Calcium 8.5 Total Bilirubin 0.3 D AST 27 ALT 32 Alkaline Phosphatase 71 Total Protein 6.7 Albumin 3.6 Urine Color Urine Appearance Urine pH Ur Specific [place] Urine Protein Urine Glucose (UA) Urine Ketones Urine Blood Urine Nitrite Urine Bilirubin Urine Urobilinogen Ur Leukocyte Esterase Urine RBC Urine WBC Ur Epithelial Cells Calcium Oxalate Crystal Urine Bacteria Urine Mucus RPR Titer Nonreactive 05/08/17 15:00 WBC RBC Hgb Hct MCV MCH MCHC RDW Plt Count MPV Sodium Potassium Chloride Carbon Dioxide Anion Gap BUN Creatinine Creat Clearance w eGFR Random Glucose Calcium Total Bilirubin AST ALT Alkaline Phosphatase Total Protein Albumin Urine Color Ltyellow Urine Appearance Slcloudy Urine pH 6.0 Ur Specific [place] 1.020 Urine Protein Negative Urine Glucose (UA) Negative Urine Ketones Negative Urine Blood 3+ H Urine Nitrite Negative Urine Bilirubin Negative Urine Urobilinogen Negative Ur Leukocyte Esterase Negative Urine RBC 178 Urine WBC 4 Ur Epithelial Cells Few Calcium Oxalate Crystal Rare Urine Bacteria Few Urine Mucus Rare RPR Titer labs noted, 3+ blood in urine because pt. is in the last day of menstruation. Assessment: 05/09/17 11:53 Withdrawal sx. Panic attack Plan: Continue detox clonidine, increase remeron to 30mg hs f/u psych in AM
[2017-05-09] MEDS ORDERED: cloNIDine HCL 0.1 MG TABLET PO ONE (12:15)
[2017-05-09] MEDS ORDERED: ALBUTEROL SO4 6.7 GM HFA INHALER IH PRN (12:30)
[2017-05-09] MEDS: GABAPENTIN 300 MG CAPSULE (FP) PO SCH ×2 (13:01→22:20)
[2017-05-09] MEDS ORDERED: MIRTAZAPINE 15 MG TABLET (FP) PO SCH (22:00)
[2017-05-09] MEDS: cloNIDine HCL 0.1 MG TABLET PO SCH (22:20)
[2017-05-09] MEDS: THIAMINE HCL 100 MG TABLET (FP) PO SCH (22:21)
[2017-05-10] MEDS: diazePAM 5 MG TABLET PO PRN ×3 (02:59→18:04)
[2017-05-10] MEDS: GABAPENTIN 300 MG CAPSULE (FP) PO SCH ×3 (05:55→22:28)
[2017-05-10] MEDS ORDERED: BACITRACIN 0.9 GM PACKET ONE (07:19)
[2017-05-10] MEDS: diazePAM 5 MG TABLET PO SCH ×2 (10:33→22:28)
[2017-05-10] MEDS: BACITRACIN 15 GM TUBE TOPICAL OINTMENT TP SCH (10:33)
[2017-05-10] MEDS: PRENATAL VITAMINS W/ FOLIC ACID TABLET (FP) PO SCH (10:33)
[2017-05-10] MEDS: cloNIDine HCL 0.1 MG TABLET PO SCH ×2 (10:33→22:28)
[2017-05-10] MEDS: METHADONE HCL 5 MG TABLET (FOR DETOX USE ONLY) PO SCH (10:33)
[2017-05-10] MEDS: CEPHALEXIN MONOHYDRATE 500 MG CAPSULE (UD) PO SCH ×2 (10:33→22:28)
[2017-05-10] MEDS: NICOTINE 21 MG/24 HOURS TOPICAL PATCH TD SCH (10:35)
--- NOTE | 2017-05-10 11:28 | PN ---
BHS Progress Note (SOAP) Subjective: anxiety restless sweats irritable interrupted sleep Objective: 05/10/17 11:26 Vital Signs Temperature 98.6 F 05/10/17 10:16 Pulse Rate 91 H 05/10/17 10:16 Respiratory Rate 18 05/10/17 10:16 Blood Pressure 131/75 05/10/17 10:16 O2 Sat by Pulse Oximetry (%) Laboratory Tests 05/08/17 05/08/17 05/08/17 07:50 07:50 07:50 WBC 7.0 RBC 4.46 Hgb 12.0 Hct 36.9 MCV 82.8 MCH 26.9 MCHC 32.4 RDW 15.4 Plt Count 292 MPV 9.2 Sodium 139 Potassium 4.2 Chloride 106 Carbon Dioxide 24 Anion Gap 9 BUN 19 H Creatinine 0.8 Creat Clearance w eGFR > 60 Random Glucose 68 L D Calcium 8.5 Total Bilirubin 0.3 D AST 27 ALT 32 Alkaline Phosphatase 71 Total Protein 6.7 Albumin 3.6 Urine Color Urine Appearance Urine pH Ur Specific [place] Urine Protein Urine Glucose (UA) Urine Ketones Urine Blood Urine Nitrite Urine Bilirubin Urine Urobilinogen Ur Leukocyte Esterase Urine RBC Urine WBC Ur Epithelial Cells Calcium Oxalate Crystal Urine Bacteria Urine Mucus RPR Titer Nonreactive 05/08/17 15:00 WBC RBC Hgb Hct MCV MCH MCHC RDW Plt Count MPV Sodium Potassium Chloride Carbon Dioxide Anion Gap BUN Creatinine Creat Clearance w eGFR Random Glucose Calcium Total Bilirubin AST ALT Alkaline Phosphatase Total Protein Albumin Urine Color Ltyellow Urine Appearance Slcloudy Urine pH 6.0 Ur Specific [place] 1.020 Urine Protein Negative Urine Glucose (UA) Negative Urine Ketones Negative Urine Blood 3+ H Urine Nitrite Negative Urine Bilirubin Negative Urine Urobilinogen Negative Ur Leukocyte Esterase Negative Urine RBC 178 Urine WBC 4 Ur Epithelial Cells Few Calcium Oxalate Crystal Rare Urine Bacteria Few Urine Mucus Rare RPR Titer awake/alert ambulating no acute distress Assessment: 05/10/17 11:27 withdrawal sx Plan: continue detox increase fluids clonidine 0.1mg bid continue abx oral and topical as ordered
[2017-05-10] MEDS: QUEtiapine FUMARATE 50 MG TABLET PO SCH ×2 (13:58→22:27)
[2017-05-10] MEDS: IBUPROFEN 400 MG TABLET (FP) PO PRN (13:59)
[2017-05-10] MEDS ORDERED: QUEtiapine FUMARATE 100 MG TABLET (FP) PO SCH ×2 (14:00→22:00)
[2017-05-10] MEDS: BACITRACIN 0.9 GM PACKET TP SCH ×2 (14:07→22:27)
--- NOTE | 2017-05-10 14:20 | PN ---
Psychiatric Progress Note Vital Signs: Vital Signs Period Temp Pulse Resp BP Sys/[place] Pulse Ox Last 24 Hr 97.1 F-99.0 F 73-120 16-20 97-140/48-89 Date of Session: 05/10/17 Chief Complaint:: Anxiety HPI: Patient reports anxiety , asking for pgarmacological aid Current Medications: Active Medications Generic Name Dose Route Start Last Admin Trade Name Freq PRN Reason Stop Dose Admin Acetaminophen 650 mg 05/08/17 01:34 05/09/17 09:07 Tylenol - PO 650 mg Q4H PRN Administration FEVER OR PAIN Al Hydroxide/Mg Hydroxide 30 ml 05/08/17 01:34 Mylanta Oral Suspension - PO Q6H PRN DYSPEPSIA Albuterol Sulfate 2 puff 05/09/17 12:30 Ventolin Hfa Inhaler - IH Q4H PRN SHORT OF BREATH/WHEEZING Bacitracin 0.9 gm 05/10/17 12:00 05/10/17 14:07 Bacitracin - TP Not Given BID HANNAH Cephalexin HCl 500 mg 05/08/17 10:00 05/10/17 10:33 Keflex - PO 05/18/17 09:59 500 mg BID HANNAH Administration Clonidine 0.1 mg 05/09/17 22:00 05/10/17 10:33 Catapres - PO 0.1 mg BID HANNAH Administration Diazepam 10 mg 05/08/17 01:34 05/10/17 13:59 Valium - PO 05/11/17 01:35 10 mg Q4H PRN Administration WITHDRAWAL(CONT SUBST) Diazepam 5 mg 05/10/17 10:00 05/10/17 10:33 Valium - PO 05/11/17 22:01 5 mg BID HANNAH Administration Diazepam 5 mg 05/12/17 10:00 Valium - PO 05/12/17 10:01 DAILY HANNAH Diphenhydramine HCl 50 mg 05/08/17 01:34 Benadryl - PO HSMR1 PRN INSOMNIA Eucalyptus/Menthol/Phenol/Sorbitol 1 each 05/08/17 01:34 Cepastat Lozenge - MM Q4H PRN SORE THROAT Gabapentin 600 mg 05/09/17 14:00 05/10/17 13:58 Neurontin - PO 600 mg TID HANNAH Administration Guaifenesin 10 ml 05/08/17 01:34 Robitussin Dm - PO Q6H PRN COUGH Haloperidol 1 mg 05/10/17 14:17 Haldol - PO Q4HWA PRN AGITATION Hydroxyzine Pamoate 50 mg 05/08/17 01:34 Vistaril - PO Q4H PRN AGITATION Ibuprofen 400 mg 05/08/17 01:34 05/10/17 13:59 Motrin - PO 400 mg Q6H PRN Administration SEVERE PAIN Loperamide HCl 4 mg 05/08/17 01:34 Imodium - PO Q6H PRN DIARRHEA Magnesium Citrate 300 ml 05/08/17 01:34 Citroma - PO Q48H PRN CONSTIPATION Magnesium Hydroxide 30 ml 05/08/17 01:34 Milk Of Magnesia - PO DAILY PRN CONSTIPATION Methadone HCl 10 mg 05/12/17 10:00 Dolophine - PO 05/12/17 10:01 DAILY HANNAH Methadone HCl 15 mg 05/10/17 10:00 05/10/17 10:33 Dolophine - PO 05/11/17 10:01 15 mg DAILY HANNAH Administration Methadone HCl 5 mg 05/13/17 06:00 Dolophine - PO 05/13/17 06:01 DAILY@0600 HANNAH Mirtazapine 45 mg 05/10/17 22:00 Remeron - PO HS HANNAH Nicotine 21 mg 05/08/17 10:00 05/10/17 10:35 Nicoderm Patch - TD Not Given DAILY HANNAH Nicotine Polacrilex 2 mg 05/08/17 01:34 05/09/17 15:47 Nicorette Gum - BC 2 mg Q2H PRN Administration NICOTINE REPLACEMENT RX Multivit/Folic Acid/Iron 1 tab 05/08/17 10:00 05/10/17 10:33 Vitamins (Sjr) - PO 1 tab DAILY HANNAH Administration Pseudoephedrine/Triprolidine 1 combo 05/08/17 01:34 Actifed - PO TID PRN NASAL CONGESTION Quetiapine Fumarate 50 mg 05/10/17 14:00 05/10/17 13:58 Seroquel - PO 50 mg TID HANNAH Administration Thiamine HCl 100 mg 05/08/17 22:00 05/09/17 22:21 Vitamin B1 - PO 100 mg HS HANNAH Administration Medication(s) Change(s): Haldol 1mg po prn q4 for anxiety and agitation Mental Status Exam - Mental Status Exam Alert and Oriented to: Person Cognitive Function: Fair Patient Appearance: Unkempt Mood: Anxious Affect: Labile Patient Behavior: Talkative Speech Pattern: Appropriate, Excessive Voice Loudness: Normal Thought Process: Goal Oriented Thought Disorder: Being Controlled Hallucinations: Denies Suicidal Ideation: Denies Homicidal Ideation: Denies Insight/Judgement: Fair Sleep: Difficulty falling asleep Appetite: Fair Muscle strength/Tone: Normal Gait/Station: Normal Additional Comments: Haldol 1mg po prn q4 for anxiety and agitation Psychiatric Treatment Plan - Problem List (1) Cannabis dependence, uncomplicated Current Visit: Yes (2) Cocaine dependence Current Visit: Yes (3) Drug-induced mood disorder Current Visit: Yes (4) Nicotine dependence Current Visit: Yes Qualifiers: Nicotine product type: cigarettes Substance use status: uncomplicated Qualified Code(s): F17.210 - Nicotine dependence, cigarettes, uncomplicated (5) Opioid dependence with withdrawal Current Visit: Yes (6) Sedative, hypnotic or anxiolytic dependence with withdrawal, uncomplicated Current Visit: Yes (7) Personality disorder Current Visit: Yes (8) Anxiety disorder Current Visit: No (9) Drug abuse and dependence Current Visit: No (10) Cannabis abuse, uncomplicated Current Visit: No Initial treatment plan: Haldol 1mg po prn q4 for anxiety and agitation
[2017-05-10] MEDS: HALOPERIDOL 1 MG TABLET (FP) PO PRN (18:04)
[2017-05-10] MEDS: MAG HYDROX/AL HYDROX/SIMETH 30 ML UNIT-DOSE CUP PO PRN (20:30)
[2017-05-10] MEDS: THIAMINE HCL 100 MG TABLET (FP) PO SCH (22:28)
[2017-05-10] MEDS: MIRTAZAPINE 15 MG TABLET (FP) PO SCH (22:28)
[2017-05-10] MEDS: NICOTINE POLACRILEX 2 MG GUM BC PRN (23:50)
[2017-05-11] MEDS: HALOPERIDOL 1 MG TABLET (FP) PO PRN ×4 (00:58→22:11)
[2017-05-11] MEDS: diazePAM 5 MG TABLET PO PRN (00:58)
[2017-05-11] MEDS: QUEtiapine FUMARATE 50 MG TABLET PO SCH ×3 (06:17→22:09)
[2017-05-11] MEDS: GABAPENTIN 300 MG CAPSULE (FP) PO SCH (06:17)
--- NOTE | 2017-05-11 09:32 | PN ---
BHS Progress Note (SOAP) Subjective: nausea, sweats, interrupte dsleep, anxiety, tremors, patient reports hit right hand/fingers in bathroom door, but now fine no pain, no swelling no injury noted by patient Objective: 05/11/17 09:31 Vital Signs - 8 hr 05/11/17 05/11/17 03:30 07:01 Temperature 97.7 F Pulse Rate 80 Respiratory 18 20 Rate Blood Pressure 132/69 Laboratory Tests 05/08/17 05/08/17 05/08/17 07:50 07:50 07:50 WBC 7.0 RBC 4.46 Hgb 12.0 Hct 36.9 MCV 82.8 MCH 26.9 MCHC 32.4 RDW 15.4 Plt Count 292 MPV 9.2 Sodium 139 Potassium 4.2 Chloride 106 Carbon Dioxide 24 Anion Gap 9 BUN 19 H Creatinine 0.8 Creat Clearance w eGFR > 60 Random Glucose 68 L D Calcium 8.5 Total Bilirubin 0.3 D AST 27 ALT 32 Alkaline Phosphatase 71 Total Protein 6.7 Albumin 3.6 Urine Color Urine Appearance Urine pH Ur Specific [place] Urine Protein Urine Glucose (UA) Urine Ketones Urine Blood Urine Nitrite Urine Bilirubin Urine Urobilinogen Ur Leukocyte Esterase Urine RBC Urine WBC Ur Epithelial Cells Calcium Oxalate Crystal Urine Bacteria Urine Mucus RPR Titer Nonreactive 05/08/17 15:00 WBC RBC Hgb Hct MCV MCH MCHC RDW Plt Count MPV Sodium Potassium Chloride Carbon Dioxide Anion Gap BUN Creatinine Creat Clearance w eGFR Random Glucose Calcium Total Bilirubin AST ALT Alkaline Phosphatase Total Protein Albumin Urine Color Ltyellow Urine Appearance Slcloudy Urine pH 6.0 Ur Specific [place] 1.020 Urine Protein Negative Urine Glucose (UA) Negative Urine Ketones Negative Urine Blood 3+ H Urine Nitrite Negative Urine Bilirubin Negative Urine Urobilinogen Negative Ur Leukocyte Esterase Negative Urine RBC 178 Urine WBC 4 Ur Epithelial Cells Few Calcium Oxalate Crystal Rare Urine Bacteria Few Urine Mucus Rare RPR Titer Assessment: 05/11/17 09:31 withdrwal sx, full ROM, no swelling no bony tenderness, open ulcers from injecting drug use bilateral hands Plan: cont detox, symptomatic relief, fluids, ice, elevate, naprosyn atc for pain.
[2017-05-11] MEDS: PRENATAL VITAMINS W/ FOLIC ACID TABLET (FP) PO SCH (10:33)
[2017-05-11] MEDS: cloNIDine HCL 0.1 MG TABLET PO SCH ×2 (10:33→22:10)
[2017-05-11] MEDS: BACITRACIN 0.9 GM PACKET TP SCH ×2 (10:33→22:11)
[2017-05-11] MEDS: CEPHALEXIN MONOHYDRATE 500 MG CAPSULE (UD) PO SCH ×2 (10:33→22:10)
[2017-05-11] MEDS: NICOTINE 21 MG/24 HOURS TOPICAL PATCH TD SCH (10:34)
[2017-05-11] MEDS: diazePAM 5 MG TABLET PO SCH ×2 (10:34→22:08)
[2017-05-11] MEDS: METHADONE HCL 5 MG TABLET (FOR DETOX USE ONLY) PO SCH (10:34)
[2017-05-11] MEDS: PANTOPRAZOLE 40 MG TABLET (FP) PO SCH (10:36)
[2017-05-11] MEDS: NAPROXEN 500 MG TABLET (FP) PO SCH ×2 (10:38→22:10)
[2017-05-11] MEDS: GABAPENTIN 400 MG CAPSULE (FP) PO SCH ×2 (13:50→22:09)
[2017-05-11] MEDS: CYCLOBENZAPRINE HCL 10 MG TABLET (FP) PO SCH ×2 (13:50→22:10)
[2017-05-11] MEDS: hydrOXYzine PAMOATE 50 MG CAPSULE (FP) PO PRN (13:50)
[2017-05-11] MEDS: MAG HYDROX/AL HYDROX/SIMETH 30 ML UNIT-DOSE CUP PO PRN (13:51)
[2017-05-11] MEDS: THIAMINE HCL 100 MG TABLET (FP) PO SCH (22:07)
[2017-05-11] MEDS: MIRTAZAPINE 15 MG TABLET (FP) PO SCH (22:09)
[2017-05-11] MEDS: traZODone HCL 100 MG TABLET (FP) PO SCH (22:10)
[2017-05-11] MEDS: ZOLPIDEM TARTRATE 10 MG TABLET (PARK CARE ONLY) PO PRN (22:11)
[2017-05-11] MEDS ORDERED: RANITIDINE HCL 150 MG TABLET (FP) PO ONE (22:58)
[2017-05-12] MEDS: QUEtiapine FUMARATE 50 MG TABLET PO SCH ×3 (06:47→22:07)
[2017-05-12] MEDS: CYCLOBENZAPRINE HCL 10 MG TABLET (FP) PO SCH ×3 (06:48→22:05)
[2017-05-12] MEDS: GABAPENTIN 400 MG CAPSULE (FP) PO SCH ×3 (06:48→22:06)
[2017-05-12] MEDS ORDERED: diazePAM 5 MG TABLET PO SCH (10:00)
[2017-05-12] MEDS ORDERED: METHADONE HCL 10 MG TABLET (FOR DETOX USE ONLY) PO SCH (10:00)
[2017-05-12] MEDS: cloNIDine HCL 0.1 MG TABLET PO SCH ×2 (10:24→22:05)
[2017-05-12] MEDS: CEPHALEXIN MONOHYDRATE 500 MG CAPSULE (UD) PO SCH ×2 (10:24→22:06)
[2017-05-12] MEDS: NAPROXEN 500 MG TABLET (FP) PO SCH ×2 (10:24→22:06)
[2017-05-12] MEDS: PANTOPRAZOLE 40 MG TABLET (FP) PO SCH (10:24)
[2017-05-12] MEDS: PRENATAL VITAMINS W/ FOLIC ACID TABLET (FP) PO SCH (10:25)
[2017-05-12] MEDS: BACITRACIN 0.9 GM PACKET TP SCH ×2 (10:26→22:05)
--- NOTE | 2017-05-12 11:59 | PN ---
BHS Progress Note (SOAP) Subjective: sweats agitation Objective: 05/12/17 11:57 Vital Signs Temperature 98.4 F 05/12/17 10:00 Pulse Rate 89 05/12/17 10:00 Respiratory Rate 18 05/12/17 10:00 Blood Pressure 134/60 05/12/17 10:00 O2 Sat by Pulse Oximetry (%) awake/alert ambulating no acute distress Assessment: 05/12/17 11:58 withdrawal sx Plan: continue detox increase fluids d/c in am
[2017-05-12] MEDS: NICOTINE 21 MG/24 HOURS TOPICAL PATCH TD SCH (15:08)
[2017-05-12] MEDS: HALOPERIDOL 1 MG TABLET (FP) PO PRN ×2 (16:52→22:06)
[2017-05-12] MEDS: hydrOXYzine PAMOATE 50 MG CAPSULE (FP) PO PRN ×2 (16:54→22:07)
[2017-05-12] MEDS: ZOLPIDEM TARTRATE 10 MG TABLET (PARK CARE ONLY) PO PRN (22:05)
[2017-05-12] MEDS: traZODone HCL 100 MG TABLET (FP) PO SCH (22:05)
[2017-05-12] MEDS: MIRTAZAPINE 15 MG TABLET (FP) PO SCH (22:06)
[2017-05-12] MEDS: THIAMINE HCL 100 MG TABLET (FP) PO SCH (22:07)
[2017-05-13] MEDS ORDERED: METHADONE HCL 5 MG TABLET (FOR DETOX USE ONLY) PO SCH (06:00)
[2017-05-13] MEDS: QUEtiapine FUMARATE 50 MG TABLET PO SCH (06:18)
[2017-05-13] MEDS: CYCLOBENZAPRINE HCL 10 MG TABLET (FP) PO SCH (06:18)
[2017-05-13] MEDS: GABAPENTIN 400 MG CAPSULE (FP) PO SCH (06:19)
--- NOTE | 2017-05-13 09:35 | DS ---
[facility] Detox Discharge Summary Admission Date: 05/08/17 Discharge Date: 05/13/17 - History Present History: Cannabis Dependence, Cocaine Dependence, Opioid Dependence, Sedative Dependence - Physical Exam Results Vital Signs: Vital Signs Temperature 97.3 F L 05/13/17 07:04 Pulse Rate 80 05/13/17 07:04 Respiratory Rate 18 05/13/17 07:04 Blood Pressure 98/58 05/13/17 07:04 O2 Sat by Pulse Oximetry (%) - Treatment Hospital Course: Detox Protocol Followed, Detoxed Safely, Responded well, Discharged Condition Good, Rehab Referral Accepted - Medication Discharge Medications: Ambulatory Orders Cephalexin [Keflex] 500 mg PO BID #20 capsule 05/07/17 Gabapentin 600 mg PO Q8H 05/07/17 Mirtazapine [Remeron -] 45 mg PO HS 05/07/17 Trazodone HCl [Desyrel -] 100 mg PO HS 05/07/17 Mirtazapine [Remeron -] 45 mg PO HS #30 tablet 05/10/17 Quetiapine Fumarate [Seroquel -] 50 mg PO TID #90 tablet MDD 150 05/10/17 - Diagnosis (1) Cannabis dependence, uncomplicated Current Visit: Yes Status: Chronic (2) Cellulitis of hand Current Visit: Yes Status: Chronic (3) Cocaine dependence Current Visit: Yes Status: Chronic Qualifiers: Substance use status: uncomplicated Qualified Code(s): F14.20 - Cocaine dependence, uncomplicated (4) Nicotine dependence Current Visit: Yes Status: Chronic Qualifiers: Nicotine product type: cigarettes Substance use status: uncomplicated Qualified Code(s): F17.210 - Nicotine dependence, cigarettes, uncomplicated (5) Opioid dependence with withdrawal Current Visit: Yes Status: Chronic (6) Sedative, hypnotic or anxiolytic dependence with withdrawal, uncomplicated Current Visit: Yes Status: Chronic (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
[2017-05-13 10:06] VITALS: BP 112/63; PULSE 91; TEMP 98.2
[2017-05-13] MEDS: CEPHALEXIN MONOHYDRATE 500 MG CAPSULE (UD) PO SCH (10:14)
[2017-05-13] MEDS: NAPROXEN 500 MG TABLET (FP) PO SCH (10:14)
[2017-05-13] MEDS: PANTOPRAZOLE 40 MG TABLET (FP) PO SCH (10:15)
[2017-05-13] MEDS: BACITRACIN 0.9 GM PACKET TP SCH (10:15)
[2017-05-13] MEDS: cloNIDine HCL 0.1 MG TABLET PO SCH (10:15)
[2017-05-13] MEDS: PRENATAL VITAMINS W/ FOLIC ACID TABLET (FP) PO SCH (10:15)
[2017-05-13] MEDS: hydrOXYzine PAMOATE 50 MG CAPSULE (FP) PO PRN (10:17)
== END 2017-05-13 10:40 | disposition home or self-care (01) | DRG 773 ==
LOC: YASAS 08:13 → Y6N 17:38 → UNDOADMIN 17:38 → Y6N 05-08 01:12
PROVIDERS: ADMIT Internal Medicine Addiction Medicine; ATTEND Internal Medicine Addiction Medicine
PROC: HZ2ZZZZ Detoxification Services for Substance Abuse Treatment (ICD-10-PCS; principal; 2017-05-08)
DX: F11.23 Opioid dependence with withdrawal (principal); F13.230 Sedative, hypnotic or anxiolytic dependence with withdrawal, uncomplicated; F14.20 Cocaine dependence, uncomplicated; F12.20 Cannabis dependence, uncomplicated; F17.210 Nicotine dependence, cigarettes, uncomplicated; F32.9 Major depressive disorder, single episode, unspecified; F60.9 Personality disorder, unspecified; L51.1 Stevens-Johnson syndrome; L03.114 Cellulitis of left upper limb; L03.113 Cellulitis of right upper limb
CPT/HCPCS: 36415; 80053; 81003; 81015; 85027; 86593; 93005; 93010

== ENCOUNTER 2017-05-07 18:34 | Emergency (ER) | payer BC ==
[2017-05-07 18:58] VITALS: BP 103/55; PULSE 94; TEMP 98.5; BMI 29.9
[2017-05-07] MEDS ORDERED: SODIUM CHLORIDE 1,000 ML IV STA (19:31)
[2017-05-07] MEDS ORDERED: LORazepam 2 MG/ML SDV VIAL ONE (19:45)
--- NOTE | 2017-05-07 19:55 | PDOC ---
History of Present Illness - General Chief Complaint: Wound Infection Stated Complaint: INFECTION Time Seen by Provider: 05/07/17 19:01 History Source: Patient Exam Limitations: No Limitations - History of Present Illness Initial Comments: 05/07/17 19:44 31yo Female patient w/ PmHx Opioid Dependence, Heroin and Cocaine use presents to ED c/o bilateral foot swelling, fatigue, and withdrawal symptoms. Patient states her last use of heroin was >36 hrs ago. In review of patient medical records, patient was last admitted 02/21/17 for similar symptoms. LNMP: Current. Patient states she was sent to this ED from Detox due to her current symptoms. She denies any other complaints. Patient is also requesting a hot meal. Patient was offered sandwich and refused. She states her Medicaid pays for her visit and it is part of her rights that she receive a hot meal. Past History - Travel Traveled outside of the country in the last 30 days: No Close contact w/someone who was outside of country & ill: No - Past Medical History Allergies/Adverse Reactions: Allergies Allergy/AdvReac Type Severity Reaction Status Date / Time amoxicillin Allergy Hives Verified 05/07/17 19:01 sulfamethoxazole Allergy blisters Verified 05/07/17 19:01 [From Bactrim] trimethoprim [From Bactrim] Allergy blisters Verified 05/07/17 19:01 Home Medications: Ambulatory Orders Cephalexin [Keflex] 500 mg PO BID #20 capsule 05/07/17 Gabapentin 600 mg PO Q8H 05/07/17 Mirtazapine [Remeron -] 45 mg PO HS 05/07/17 Trazodone HCl [Desyrel -] 100 mg PO HS 05/07/17 Anemia: No Asthma: No Cancer: No Cardiac Disorders: No CVA: No COPD: No CHF: No Dementia: No Diabetes: No GI Disorders: No Disorders: No HTN: No Hypercholesterolemia: No Kidney Stones: No Liver Disease: No Psychiatric Problems: Yes (depression, bipolar) Suicide Attempt (Hx): No Seizures: No Thyroid Disease: No - Surgical History Abdominal Surgery: No Appendectomy: No Cardiac Surgery: No Cholecystectomy: No Lung Surgery: No Neurologic Surgery: No Orthopedic Surgery: No - Reproductive History PID: No - Psycho/Social/Smoking Cessation Hx Anxiety: Yes Suicidal Ideation: No Smoking History: Current every day smoker Have you smoked in the past 12 months: Yes Number of Cigarettes Smoked Daily: 20 Information on smoking cessation initiated: No 'Breaking Loose' booklet given: 02/21/17 Hx Alcohol Use: No Drug/Substance Use Hx: No Substance Use Type: None Hx Substance Use Treatment: Yes Review of Systems - Review of Systems Able to Perform ROS?: Yes Is the patient limited Czech proficient: No Cardiac (ROS): No: Chest Pain, Chest Tightness ABD/GI: No: Diarrhea, Nausea, Vomiting Musculoskeletal: Yes: Other (Feet Swelling) Integumentary: Yes: Other (Hand Wounds). No: Bruising, Erythema, Rash, Sweating Neurological: No: Headache, Ataxia, Dizziness All Other Systems: Reviewed and Negative *Physical Exam - Vital Signs Last Vital Signs Temp Pulse Resp BP Pulse Ox 98.5 F 94 H 18 103/55 100 05/07/17 18:35 05/07/17 18:35 05/07/17 18:35 05/07/17 18:35 05/07/17 18:35 - Physical Exam General Appearance: Yes: Nourished, Appropriately Dressed. No: Apparent Distress, Mild Distress, Moderate Distress, Severe Distress Neck: positive: Trachea midline, Supple. negative: Rigid, Decreased range of motion, Stridor, Lymphadenopathy (R), Lymphadenopathy (L), Tender lateral, Tender midline Respiratory/Chest: positive: Lungs Clear, Normal Breath Sounds. negative: Chest Tender, Respiratory Distress, Accessory Muscle Use, Labored Respiration, Rapid RR, Rhonchi, Stridor, Wheezing Cardiovascular: positive: Regular Rhythm, Regular Rate Gastrointestinal/Abdominal: positive: Normal Bowel Sounds, Soft. negative: Distended, Guarding, Rebound, Tenderness Musculoskeletal: positive: Normal Inspection. negative: CVA Tenderness, Decreased Range of Motion, Vertebral Tenderness Extremity: positive: Normal Capillary Refill, Normal Inspection, Normal Range of Motion. negative: Coldness, Pedal Edema, Swelling, Calf Tenderness, Erythema , Inflammation Integumentary: positive: Normal Color, Dry, Warm, Other (Multiple wounds/sores to dorsal aspect of both hands, forearms, and neck.) Neurologic: positive: manager house II-XII NML intact, Fully Oriented, Alert, Normal Mood/ Affect, Normal Response, Motor Strength /5 ED Treatment Course - LABORATORY CBC & Chemistry Diagram: 05/07/17 20:17 05/07/17 20:17 *DC/Admit/Observation/Transfer Diagnosis at time of Disposition: Drug abuse and dependence, Infection of skin - Discharge Dispostion Disposition: HOME Condition at time of disposition: Stable Admit: No - Prescriptions Prescriptions: Cephalexin [Keflex] 500 mg PO BID #20 capsule - Patient Instructions Printed Discharge Instructions: DI for Wound Infection Additional Instructions: Follow up with Detox. You may olive picker your prescription from pharmacy or have detox start you on Keflex 500mg BID. x 10 days. Good [place] with Detox!! Print Language: PORTUGUESE
[2017-05-07 20:36] LABS: EOSINOPHIL 3.1 % (0-4.5); MCH 27.1 pg (25.7-33.7); MEAN PLT VOLUME 8.4 fl (7.5-11.1); NEUTROPHILS 43.5 % (42.8-82.8); PLATELET COUNT 296 K/MM3 (134-434); RDW 15.4 % (11.6-15.6); WHITE BLOOD COUNT 8.7 K/mm3 (4.0-10.0)
[2017-05-07 21:06] LABS: ALBUMIN 3.4 g/dl (3.4-5.0); ALK PHOS 68 U/L (45-117); ANION GAP 7 (8-16); CALCIUM 8.4 mg/dL (8.5-10.1); CO2 25 mmol/L (21-32); CREATININE 0.8 mg/dL (0.55-1.02); GLUCOSE,RANDOM 114 mg/dL (74-106); SGOT/AST 24 U/L (15-37); SGPT/ALT 28 U/L (12-78); TOT PROT 6.6 g/dl (6.4-8.2)
[2017-05-07 21:07] LABS: BILIRUBIN,TOTAL < 0.1 mg/dL (0.2-1.0)
[2017-05-07] MEDS ORDERED: diazePAM CARPU-JECT 10 MG/2 ML DISP.SYRIN IVPUSH ONE (21:21)
[2017-05-07] MEDS ORDERED: diazePAM CARPU-JECT 10 MG/2 ML DISP.SYRIN ONE (22:23)
[2017-05-07 22:33] LABS: URINE APPEARANCE SLCLOUDY; URINE BILIRUBIN NEGATIVE (NEGATIVE); URINE BLOOD 3+ (NEGATIVE); URINE COLOR LTYELLOW; URINE GLUCOSE (UA) NEGATIVE (NEGATIVE); URINE KETONE NEGATIVE (NEGATIVE); URINE LEUK ESTERASE NEGATIVE (NEGATIVE); URINE NITRITE NEGATIVE (NEGATIVE); URINE PROTEIN NEGATIVE (NEGATIVE); URINE UROBILINOGEN NEGATIVE mg/dL (0.2-1.0)
[2017-05-07 22:43] LABS: URINE MARIJUANA THC POSITIVE ng/ml (CUTOFF=50)
[2017-05-07 22:52] LABS: URINE BACTERIA RARE /hpf (NONE SEEN); URINE RBC 848 /hpf (0-3); URINE WBC 30 /hpf (3-5)
== END 2017-05-08 00:14 | disposition other institution (70) ==
LOC: JER 18:34
PROC: 3E033NZ Introduction of Analgesics, Hypnotics, Sedatives into Peripheral Vein, Percutaneous Approach (ICD-10-PCS; principal; 2017-05-07)
PROC: 3E033NZ Introduction of Analgesics, Hypnotics, Sedatives into Peripheral Vein, Percutaneous Approach (ICD-10-PCS; 2017-05-07)
DX: L08.89 Other specified local infections of the skin and subcutaneous tissue (principal); F11.20 Opioid dependence, uncomplicated; F14.20 Cocaine dependence, uncomplicated
CPT/HCPCS: 36415; 80053; 80307; 81003; 81015; 83605; 84703; 85025; 99282-25